=== PATIENT | male | born 1985 | race Caucasian/White ===

== ENCOUNTER 2023-05-20 17:35 | Emergency (ER) | payer MEDICAID, SELFPAY ==
--- NOTE | ~2023-05-20 | CT_ITS ---
EXAMINATION: CT ABDOMEN AND PELVIS WITHOUT CONTRAST CLINICAL INFORMATION: Flank pain. COMPARISON: None available. TECHNIQUE: Multidetector volumetric imaging was performed from the superior aspect of the liver through the pubic symphysis. Sagittal and coronal reformatted images were obtained on the technologist's workstation. This CT examination was performed using dose optimization techniques as appropriate, variously including the following: *Automated exposure control. *Adjustment of mA and/or kV according to patient size (this includes techniques or standardized protocols for targeted exams where dose is matched to indication/reason for exam; i.e. extremities or head). *Use of iterative reconstruction technique. DLP: 833 mGy-cm FINDINGS: LUNG BASES: The visualized lung bases are unremarkable. LIVER, GALLBLADDER, AND BILIARY TREE: The liver is normal in size and shape. Mild parenchymal hypoattenuation, consistent with steatosis. No focal hepatic lesion or biliary ductal dilatation is present. The gallbladder is unremarkable with no evidence of radiopaque gallstones, gallbladder wall thickening, or obvious pericholecystic inflammatory changes. PANCREAS: Unremarkable. SPLEEN: Unremarkable. ADRENAL GLANDS: Unremarkable. KIDNEYS AND URETERS: The kidneys are normal in size, shape, and attenuation. No hydronephrosis, hydroureter, or calculi seen. No perinephric stranding. BLADDER: Unremarkable. No inflammatory change or associated calcification. GASTROINTESTINAL TRACT: The small and large bowel are unremarkable. No small or large bowel obstruction. No bowel wall thickening or inflammatory change. The appendix is unremarkable. PERITONEAL CAVITY: No intra-abdominal free air or free fluid. No intra-abdominal mass or organized fluid collection/abscess formation. ABDOMINAL WALL: No significant hernia is appreciated. LYMPH NODES: No significant lymphadenopathy. VASCULAR: Unremarkable. PELVIC VISCERA: Punctate 0.1 cm calcification within the anterosuperior aspect of the prostate which likely indicates a parenchymal calcification. A proximal urethral calcification is thought less likely; however, cannot be entirely excluded in the appropriate clinical setting. Pelvic phleboliths. OSSEOUS STRUCTURES: No acute osseous abnormality. Mild degenerative disc disease and facet arthropathy at L5-S1. CT/CT abdomen pelvis wo IV con IMPRESSION: 1. No renal or ureteral stone. No hydronephrosis or hydroureter. Unremarkable urinary bladder without inflammatory change or associated calcification. 2. No bowel wall thickening or inflammatory change. No small or large bowel obstruction. Unremarkable appendix. 3. Mild hepatic steatosis. No hepatic parenchymal lesion or biliary ductal dilatation. 4. No intra-abdominal mass, lymphadenopathy, or ascites. 5. Mild degenerative disc disease and facet arthropathy at L5-S1. Fleischner guidelines were followed.
[2023-05-20 17:43] VITALS: BP 110/85; PULSE 66; RESP 18; O2SAT 100; BMI 39.3
--- NOTE | 2023-05-20 17:43 | ED.ABDPAIN ---
HPI - Abdominal Pain General Chief Complaint: Urogenital-Male Stated Complaint: abd pain, kidney stone? Time Seen by Provider: 05/20/23 17:39 Source: patient Mode of arrival: ambulatory History of Present Illness HPI narrative: 37-year-old male with remote history of kidney stone presents with onset of acute flank pain approximately 20-30 minutes ago with associated nausea, vomiting, diaphoresis and reports chills but states that they are associated with the pain. Related Data Allergies Allergy/AdvReac Type Severity Reaction Status Date / Time No Known Allergies* Allergy Uncoded 01/11/20 14:12 Review of Systems Review of Systems Pertinent positives and negatives as stated in HPI PMFSH Past Medical History Source: nursing notes reviewed Social History Social History Advance Directives: No Advance Directives Information Provided: No Physical Exam ED Vital Signs: Vital Signs - 24 hr 05/20/23 17:43 05/20/23 18:49 Temperature 97.7 F Pulse Rate 66 54 Respiratory Rate 18 18 Blood Pressure 110/85 108/56 L Pulse Oximetry 100 97 Oxygen Delivery Method Room Air Room Air BMI result Body Mass Index 39.3 VITAL SIGNS: Reviewed. GENERAL: Well developed, well nourished, in moderate-severe distress. HEAD: Normocephalic/atraumatic EYES: PERRLA, EOMI EARS: Ext canals without abnormality NOSE: Nares patent bilateral OROPHARYNX: no oral lesions noted, posterior pharynx clear NECK: Supple, no adenopathy LUNGS: Normal breath sounds. No adventitious sounds or accessory muscle use. CARDIOVASCULAR: Regular rate and rhythm without noted murmurs ABDOMEN: Soft, non-tender, non-distended with bowel sounds. MUSCULOSKELETAL: No tenderness, deformities, or effusions noted on gross inspection. EXTREMITIES: No cyanosis, clubbing or edema. SKIN: Inspection of the skin reveals no rashes NEUROLOGIC: Alert and oriented x 4. Strength and sensation to light touch were grossly intact x 4. Medical Decision Making Medical Decision Making [facility] Narrative: 37-year-old male with history and clinical presentation, DDX: renal colic, doubt appendicitis or UTI I reviewed all investigations and hematologic indices are negative for leukocytosis or left shift, there is no anemia or thrombocytopenia. Chemistry to seize do not demonstrate an THUAN or electrolyte/liver enzyme derangements. CT scan does not demonstrate any ureterolithiasis or other acute intra-abdominal pathology. Patient responded well to antiemetics/pain medication and IV fluids. My interpretation given patient's clinical presentation is that he passed a nonobstructive stone, he is currently much improved and is otherwise discharged home. Differential Diagnosis Differential Diagnoses: The differential diagnosis associated with the presentation includes Please see the discussion above Admission/Observation Consideration of admission/observation: Escalation of care including admission/observation considered Please see the discussion above Lab Data MDM Lab Attestation statement: I reviewed the patient's lab results. Please see the discussion above 05/20/23 17:51 05/20/23 17:51 Labs: Lab Results 05/20/23 Range/Units 17:51 WBC 8.5 (4.8-10.8) X10*3/uL RBC 5.09 (4.60-5.80) X10*6/uL Hgb 14.8 (14.0-18.0) g/dl Hct 44.2 (42.0-52.0) % MCV 86.8 (80.0-98.0) fL MCH 29.1 (27.0-33.0) pg MCHC 33.5 (31.0-36.0) g/dl RDW 12.6 (11.0-16.0) % Plt Count 384 (160-400) X10*3/uL MPV 9.5 (9.4-12.4) fL Immature Gran % (Auto) 0.7 H (0.0-0.4) % Neut % (Auto) 41.7 L (45-73) % Lymph % (Auto) 42.3 H (20-40) % Becker % (Auto) 9.3 (2-11) % Eos % (Auto) 5.2 H (0-4) % Baso % (Auto) 0.8 (0-2) % Lymph # (Auto) 3.6 (1.2-4.9) X10*3/uL Becker # (Auto) 0.8 (0.1-1.2) X10*3/uL Eos # (Auto) 0.4 (0.0-0.4) X10*3/uL Baso # (Auto) 0.1 (0.0-0.2) X10*3/uL Abs Immat Gran (auto) 0.06 H (0.00-0.03) X10*3/uL Absolute Neuts (auto) 3.5 (2.0-8.3) x10*3/uL Absolute Nucleated RBC 0.000 (0.0-0.012) X10*3/uL Nucleated RBC % (auto) 0.0 (0.0-0.2) /100WBC Sodium 143 (135-145) mmol/L Potassium 3.6 (3.3-5.1) mmol/L Chloride 106 (96-108) mmol/L Carbon Dioxide 28 (22-29) mmol/L Anion Gap 13 (12-20) BUN 13 (9-16) mg/dL Creatinine 1.05 (0.5-1.4) mg/dL Estim Creat Clear Calc 117.1 Estimated GFR > 60 Random Glucose 91 (60-115) mg/dL Calcium 9.6 (8.4-10.2) mg/dL Total Bilirubin 0.3 (0.0-1.0) mg/dL AST 21 (5-37) U/L ALT 20 (0-40) U/L Alkaline Phosphatase 87 (39-117) U/L Total Protein 8.1 H (6.5-8.0) g/dL Albumin 4.7 (3.5-5.0) g/dL Radiology Impression Discussion of test interpretation with radiology: I have reviewed the radiologist's reading. Radiologist Impression: Please see the discussion above External Record Review External record reviewed: Outpatient record and Prior outpatient labs Medications Administered Discontinued Medications Generic Name Dose Route Start Last Admin Trade Name Freq PRN Reason Stop Dose Admin Sodium Chloride 1,000 mls @ 999 mls/hr 05/20/23 17:45 05/20/23 19:47 Ns IV 05/20/23 18:45 Infused .Q1H1M INÉS Infusion Ketorolac Tromethamine 15 mg 05/20/23 17:43 05/20/23 17:49 Ketorolac Tromethamine 30 Mg/Ml Vial IVPUSH 05/20/23 17:44 15 mg ONCE ONE Administration Ondansetron HCl 4 mg 05/20/23 17:43 05/20/23 17:49 Ondansetron Hcl 4 Mg/2 Ml Vial IVPUSH 05/20/23 17:44 4 mg ONCE ONE Administration Critical Care Time Critical Care Time Critical Care Time: Yes Total Critical Care Time: 30 Attestation: I personally attest to this time spent taking care of the patient. Discharge Plan Discharge Clinical Impression: Renal colic Patient Disposition: Home, Self-Care Instructions: Renal Colic (ED) Additional Instructions: 1. You likely pass the stone, increase the amount of water intake and try to limit the amount of carbonated and caffeinated beverages. Return to the ER for any worsening symptoms.
[2023-05-20] MEDS: 0.9 % Sodium Chloride 1,000 ML 999 ML IV (17:48)
[2023-05-20] MEDS: ondansetron HCL 4 MG/2 ML VIAL IVPUSH (17:49)
[2023-05-20] MEDS: Ketorolac Tromethamine 30 MG/ML VIAL 15 MG IVPUSH (17:49)
[2023-05-20 17:54] LABS: MANUAL DIFF FLAG NO
--- NOTE | 2023-05-20 17:54 | PC.NURSE ---
patient presenting fro [facility] started to have right sided flank pain, patient vomiting and diaphoretic. patient had iv line started, iv running with 1000ml NS patient medicated per MAR
[2023-05-20 18:10] LABS: Alanine Aminotransferase 20 U/L (0-40); Albumin Level 4.7 g/dL (3.5-5.0); Alkaline Phosphatase 87 U/L (39-117); Anion Gap 13 (12-20); Aspartate Amino Transferase 21 U/L (5-37); Bilirubin Total 0.3 mg/dL (0.0-1.0); Blood Urea Nitrogen 13 mg/dL (9-16); Calcium 9.6 mg/dL (8.4-10.2); Carbon Dioxide 28 mmol/L (22-29); Chloride 106 mmol/L (96-108); Creatinine Clr Calc Pharmacy 117.1; Estimated Glomerular Filt Rate > 60; Glucose Random 91 mg/dL (60-115); Potassium 3.6 mmol/L (3.3-5.1); Sodium 143 mmol/L (135-145); Total Protein 8.1 g/dL (6.5-8.0)
[2023-05-20 18:18] LABS: Basophils Absolute Auto 0.1 X10*3/uL (0.0-0.2); Basophils Percent Auto 0.8 % (0-2); Eosinophils Absolute Auto 0.4 X10*3/uL (0.0-0.4); Eosinophils Percent Auto 5.2 % (0-4); Hematocrit 44.2 % (42.0-52.0); Hemoglobin 14.8 g/dl (14.0-18.0); Imm Gran Abs Auto 0.06 X10*3/uL (0.00-0.03); Imm Gran Pct Auto 0.7 % (0.0-0.4); Lymphocytes Absolute Auto 3.6 X10*3/uL (1.2-4.9); Lymphocytes Percent Auto 42.3 % (20-40); Mean Corpuscular HGB Conc 33.5 g/dl (31.0-36.0); Mean Corpuscular Hemoglobin 29.1 pg (27.0-33.0); Mean Corpuscular Volume 86.8 fL (80.0-98.0); Mean Platelet Volume 9.5 fL (9.4-12.4); Monocytes Absolute Auto 0.8 X10*3/uL (0.1-1.2); Monocytes Percent Auto 9.3 % (2-11); Neutrophils Absolute Auto 3.5 x10*3/uL (2.0-8.3); Neutrophils Percent Auto 41.7 % (45-73); Platelet Count 384 X10*3/uL (160-400); Red Blood Count 5.09 X10*6/uL (4.60-5.80); Red Cell Distribution Width 12.6 % (11.0-16.0); White Blood Count 8.5 X10*3/uL (4.8-10.8)
[2023-05-20 18:49] VITALS: BP 108/56; PULSE 54; RESP 18; TEMP 36.5; O2SAT 97
[2023-05-20 21:10] VITALS: BP 119/59; PULSE 60; RESP 18; TEMP 36.8; O2SAT 96
== END 2023-05-20 21:15 | disposition home or self-care (01) ==
PROVIDERS: Emergency Provider Student in an Organized Health Care Education/Training Program
DX: N23 Unspecified renal colic (principal); Z87.442 Personal history of urinary calculi
CPT/HCPCS: 36415; 74176; 80053; 85025; 96361; 96374; 96375; 99284; J1885; J2405

== ENCOUNTER 2023-11-23 22:29 | Inpatient (IN) | payer MEDICAID, SELFPAY ==
--- NOTE | 2023-11-23 | ECG_ITS ---
Test Reason : CHEST PAIN Blood Pressure : / mmHG Vent. Rate : 068 BPM Atrial Rate : 068 BPM P-R Int : 172 ms QRS Dur : 086 ms QT Int : 376 ms P-R-T Axes : 010 041 067 degrees QTc Int : 399 ms Normal sinus rhythm Cannot rule out Anterior infarct , age undetermined Abnormal ECG No previous ECGs available Referred By: Generic ED Physician Electronically Signed By:LINCOLN GIANG MD
--- NOTE | ~2023-11-23 | XR_ITS ---
EXAMINATION: XR CHEST CLINICAL INFORMATION: Chest pain. COMPARISON: None available. TECHNIQUE: Frontal view of the chest was obtained. FINDINGS: No significant abnormality is noted involving the heart, lungs, mediastinum, bony thorax or soft tissues. XR/XR chest 1V IMPRESSION: Unremarkable examination.
[2023-11-23 22:37] VITALS: BP 142/77; PULSE 64; RESP 17; TEMP 36.6; O2SAT 97; BMI 36.3
[2023-11-23 22:55] LABS: MANUAL DIFF FLAG NO
[2023-11-23 22:56] LABS: Basophils Percent Auto 0.3 % (0-2); Eosinophils Absolute Auto 0.1 X10*3/uL (0.0-0.4); Eosinophils Percent Auto 0.5 % (0-4); Hemoglobin 14.5 g/dl (14.0-18.0); Imm Gran Abs Auto 0.05 X10*3/uL (0.00-0.03); Imm Gran Pct Auto 0.4 % (0.0-0.4); Lymphocytes Absolute Auto 1.2 X10*3/uL (1.2-4.9); Lymphocytes Percent Auto 9.7 % (20-40); Mean Corpuscular HGB Conc 34.5 g/dl (31.0-36.0); Mean Corpuscular Hemoglobin 29.7 pg (27.0-33.0); Mean Corpuscular Volume 86.1 fL (80.0-98.0); Mean Platelet Volume 9.3 fL (9.4-12.4); Monocytes Absolute Auto 0.6 X10*3/uL (0.1-1.2); Monocytes Percent Auto 4.4 % (2-11); Neutrophils Absolute Auto 10.7 x10*3/uL (2.0-8.3); Neutrophils Percent Auto 84.7 % (45-73); Platelet Count 373 X10*3/uL (160-400); Red Blood Count 4.88 X10*6/uL (4.60-5.80); Red Cell Distribution Width 12.5 % (11.0-16.0); White Blood Count 12.6 X10*3/uL (4.8-10.8)
[2023-11-23 23:08] LABS: Alanine Aminotransferase 19 U/L (0-40); Albumin Level 4.7 g/dL (3.5-5.0); Alkaline Phosphatase 80 U/L (39-117); Anion Gap 15 (12-20); Aspartate Amino Transferase 23 U/L (5-37); Bilirubin Total 0.3 mg/dL (0.0-1.0); Blood Urea Nitrogen 14 mg/dL (9-16); Calcium 9.7 mg/dL (8.4-10.2); Carbon Dioxide 28 mmol/L (22-29); Chloride 103 mmol/L (96-108); Creatinine Clr Calc Pharmacy 83.5; Estimated Glomerular Filt Rate 57; Glucose Random 122 mg/dL (60-115); Potassium 4.3 mmol/L (3.3-5.1); Sodium 142 mmol/L (135-145); Total Protein 7.7 g/dL (6.5-8.0)
[2023-11-23 23:15] LABS: Troponin-I High Sensitivity 43.5 ng/L (<3.5-35.0)
--- NOTE | 2023-11-23 23:28 | ED.CHESTPAIN ---
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 practice which did earlier today came home at 2000 after taking shower at 21:00 patient noticed bilateral arm pain and mid chest burning sensation, no jaw pain no nausea no vomiting no shortness a breath patient never had similar pain in the past no cardiac history in family patient does nonsmoker no substance abuse except cannabis patient is unable to describe whether pain was increasing on deep inspiration but did feel change in character of the pain with movement Related Data Allergies Allergy/AdvReac Type Severity Reaction Status Date / Time No Known Allergies* Allergy Unknown Uncoded 11/23/23 22:39 Review of Systems Review of Systems: Yes all other systems are reviewed and are negative [facility] Social History Social History Alcohol intake: current Alcohol intake frequency: holidays/special occasions only Smoked in Last 30 Days: No Use of substances other than those prescribed or required for medical reasons: Yes Substance Use Type: Marijuana Substance Use Frequency: Chronic Longstanding Advance Directives: No Advance Directives Information Provided: Yes Do you have a plan to hurt others: No Plan Physical Exam Vital Signs: Vital Signs: Last Vital Signs Temp 97.9 F 11/24/23 01:13 Pulse 62 11/24/23 01:13 Resp 15 11/24/23 01:13 BP 117/54 L 11/24/23 01:13 Pulse Ox 95 11/24/23 01:13 O2 Del Method Room Air 11/24/23 01:13 BMI result Body Mass Index 36.3 Appearance: Alert. Oriented X3. No acute distress. Eyes: PERRLA, No Nystagmus ENT: Pharynx normal. Oral Mucosa moist Neck: Normal inspection. Neck supple. CVS: Normal heart rate and rhythm. Pulses normal. No murmur/rub or gallop Respiratory: No respiratory distress. Equal air entry bilateral, no wheezing/rales/rhonchi Abdomen: Soft and nontender. Bowel sounds are present, no mass palpable, no CVA tenderness Skin: Skin warm and dry. Normal skin color. Normal skin turgor. Extremities: No lower extremity edema. No calf tenderness Neuro: Oriented X 3. No motor deficit. No sensory deficit.No cerebellar signs , cranial nerves II-XII intact Medications Administered Discontinued Medications Generic Name Dose Route Start Last Admin Trade Name Nichole PRN Reason Stop Dose Admin Aspirin 162 mg 11/23/23 23:37 11/23/23 23:49 Aspirin 81 Mg Tab.Chew PO 11/23/23 23:38 162 mg ONCE ONE Administration Atorvastatin Calcium 80 mg 11/24/23 01:22 11/24/23 01:40 Atorvastatin Calcium 80 Mg Tablet PO 11/24/23 01:23 80 mg ONCE ONE Administration Heparin Sodium (Porcine) 5,000 unit 11/24/23 01:15 11/24/23 01:39 Heparin Sodium,Porcine 5,000 Unit/Ml Vial IVPUSH 11/24/23 01:16 5,000 unit ONCE ONE Administration Nitroglycerin 1 inch 11/23/23 23:37 11/23/23 23:49 Nitroglycerin 2 % Oint 1 Gm Packet TRANSDERMA 11/23/23 23:38 1 inch ONCE ONE Administration Medical Decision Making Medical Decision Making [facility] Narrative: Patient with chest pain with bilateral arm pain with no prior history of coronary artery disease initial troponin I was 43.5 repeat in 2 hours was 68.5 patient not on any high protein diet or creatinine chest pain and arm pain felt better after nitro paste ointment will admit patient for further cardiac evaluation started on heparin drip repeat EKG done which showed slightly more prominent ST elevation possible in V5 V6 although has diffuse ST elevation inferior leads also case discussed Dr. Moreno advised to call [facility] cardiac catheterization for possible STEMI ??? Pericarditis at this time patient does not have any chest pain after nitro paste already on heparin Case discussed with Dr. Calle [facility] cardiac catheterization reviewed the EKGs suspecting possible pericarditis although patient's pain is not very typical patient unable to explain whether pain increases on inspiration or not suggested to give high dose of aspirin 650 mg 3 times a day along with colchicine 0.6 two times a day at this time patient does not have any chest pain will admit patient to medical service Differential Diagnosis Differential Diagnoses: The differential diagnosis associated with the presentation includes ACS/STEMI/non-STEMI/pericarditis Admission/Observation Consideration of admission/observation: Escalation of care including admission/observation considered Consult Healthcare Provider Management of the patient was discussed with: Hospitalist Lab Data [facility] Lab Attestation statement: I reviewed the patient's lab results. 11/23/23 22:49 11/23/23 22:49 Labs: Lab Results 11/23/23 11/23/23 11/24/23 Range/Units 22:49 23:58 00:43 WBC 12.6 H (4.8-10.8) X10*3/uL RBC 4.88 (4.60-5.80) X10*6/uL Hgb 14.5 (14.0-18.0) g/dl Hct 42.0 (42.0-52.0) % MCV 86.1 (80.0-98.0) fL MCH 29.7 (27.0-33.0) pg MCHC 34.5 (31.0-36.0) g/dl RDW 12.5 (11.0-16.0) % Plt Count 373 (160-400) X10*3/uL MPV 9.3 L (9.4-12.4) fL Immature Gran % (Auto) 0.4 (0.0-0.4) % Neut % (Auto) 84.7 H (45-73) % Lymph % (Auto) 9.7 L (20-40) % Hodgeman % (Auto) 4.4 (2-11) % Eos % (Auto) 0.5 (0-4) % Baso % (Auto) 0.3 (0-2) % Lymph # (Auto) 1.2 (1.2-4.9) X10*3/uL Hodgeman # (Auto) 0.6 (0.1-1.2) X10*3/uL Eos # (Auto) 0.1 (0.0-0.4) X10*3/uL Baso # (Auto) 0.0 (0.0-0.2) X10*3/uL Abs Immat Gran (auto) 0.05 H (0.00-0.03) X10*3/uL Absolute Neuts (auto) 10.7 H (2.0-8.3) x10*3/uL Absolute Nucleated RBC 0.000 (0.0-0.012) X10*3/uL Nucleated RBC % (auto) 0.0 (0.0-0.2) /100WBC PT 11.7 (11.1-13.3) SEC INR 1.0 (0.9-1.1) APTT 26.8 (26.0-36.8) SEC D-Dimer High Sensitivty 166 NG/ML Sodium 142 (135-145) mmol/L Potassium 4.3 (3.3-5.1) mmol/L Chloride 103 (96-108) mmol/L Carbon Dioxide 28 (22-29) mmol/L Anion Gap 15 (12-20) BUN 14 (9-16) mg/dL Creatinine 1.40 (0.5-1.4) mg/dL Estim Creat Clear Calc 83.5 Estimated GFR 57 Random Glucose 122 H (60-115) mg/dL Calcium 9.7 (8.4-10.2) mg/dL Magnesium 2.0 (1.6-2.6) mg/dL Total Bilirubin 0.3 (0.0-1.0) mg/dL AST 23 (5-37) U/L ALT 19 (0-40) U/L Alkaline Phosphatase 80 (39-117) U/L Troponin I High Sens 43.5 H 68.5 H D (<3.5-35.0) ng/L Total Protein 7.7 (6.5-8.0) g/dL Albumin 4.7 (3.5-5.0) g/dL Independent Interpretation I performed an independent interpretation of an: EKG and Plain X-Ray Interpretation: Normal sinus rhythm heart rate 68 beats per minute poor progression of R-wave in anterior leads slight J-point elevation diffusely in inferior and lateral leads Repeat EKG at 04/19 09:00 showed normal sinus rhythm with heart rate 65 beats per minute poor progression of R-wave slight ST elevation in V5 V6 which has changed from previous EKG also diffuse ST elevation inferior leads 2 3 AVF Radiology Impression Discussion of test interpretation with radiology: I have reviewed the radiologist's reading. Critical Care Time Critical Care Time Critical Care Time: Yes Total Critical Care Time: 60 Attestation: The patient was critically ill with a high probability of imminent or life threatening deterioration. I spent greater than 65 ???minutes of discontinuous time evaluating the patient,delivering critical care at the bedside, discussing and evaluating pertinent data with consultants. Critical care time does not include time spent performing separately billable procedures or teaching. Total time spent performing critical care was60 ???minutes. Discharge Plan Discharge Clinical Impression: Chest pain, Acute pericarditis Patient Disposition: Admitted As Inpatient Print Language: Khmer
--- NOTE | 2023-11-23 23:37 | MHC.EDTECH ---
Patient placed on monitor and patient vitals done
[2023-11-23 23:38] VITALS: BP 137/68; PULSE 67; RESP 19; TEMP 37.3; O2SAT 96
[2023-11-23] MEDS: Nitroglycerin 2 % Oint 1 GM Packet 1 INCH TRANSDERMA (23:49)
[2023-11-23] MEDS: Aspirin 81 MG TAB.CHEW 162 MG PO (23:49)
[2023-11-23 23:51] VITALS: PULSE 69
[2023-11-24] VITALS (7 sets, daily range): BP systolic 108–129; BP diastolic 54–77; PULSE 48–62; RESP 14–20; TEMP 36.4–36.6; O2SAT 95–99; BMI 37.0; BMI 37.4
--- NOTE | 2023-11-24 | ECG_ITS ---
Test Reason : REPEAT Blood Pressure : / mmHG Vent. Rate : 058 BPM Atrial Rate : 058 BPM P-R Int : 180 ms QRS Dur : 100 ms QT Int : 414 ms P-R-T Axes : 014 055 086 degrees QTc Int : 406 ms Sinus bradycardia Nonspecific ST and T wave abnormality Abnormal ECG When compared with ECG of 24-NOV-2023 01:19, No significant change was found Referred By: Jessy Lazo Electronically Signed By:LINCOLN GIANG MD
[2023-11-24 00:19] LABS: Prothrombin Time 11.7 SEC (11.1-13.3)
[2023-11-24 00:21] LABS: D Dimer High Sensitivity 166 NG/ML; Partial Thromboplastin Time 26.8 SEC (26.0-36.8)
[2023-11-24 01:12] LABS: Troponin-I High Sensitivity 68.5 ng/L (<3.5-35.0)
--- NOTE | 2023-11-24 01:19 | ECG_ITS ---
Test Reason : REPEAT EKG Blood Pressure : / mmHG Vent. Rate : 065 BPM Atrial Rate : 065 BPM P-R Int : 190 ms QRS Dur : 096 ms QT Int : 394 ms P-R-T Axes : 018 054 088 degrees QTc Int : 409 ms Normal sinus rhythm Cannot rule out Anterior infarct (cited on or before 23-NOV-2023) Nonspecific ST elevation Abnormal ECG When compared with ECG of 23-NOV-2023 22:33, No significant change was found Referred By: Jacob Shah Electronically Signed By:LINCOLN GIANG MD
[2023-11-24] MEDS: Heparin Sodium,Porcine 5,000 UNIT/ML VIAL 5000 UNIT IVPUSH (01:39)
[2023-11-24] MEDS: Atorvastatin Calcium 80 MG TABLET PO (01:40)
[2023-11-24] MEDS: Colchicine 0.6 MG TABLET PO ×2 (03:28→10:15)
[2023-11-24] MEDS: Aspirin Enteric Coated 325 MG TABLET.DR PO (03:28)
[2023-11-24 03:52] LABS: Troponin-I High Sensitivity 115.7 ng/L (<3.5-35.0)
--- NOTE | 2023-11-24 04:32 | PM.IMHP ---
History of Present Illness Date of Service: 11/24/23 Attending physician on admission: Jessy Lazo Chief Complaint: Chest pain Dustin Abraham is a very pleasant 38 years old man with no significant past medical history presents to the emergency department complaining of mid chest pain that started last night around 9 PM while he was relaxing at home. He said that the pain does not radiate however, he feels some pain traveling down the anterior aspect of both arms. He described the pain as a burning sensation. No relieving or exacerbating factors reported such as change in position. Associated symptoms he reported some shortness of breath. Denied diaphoresis, nausea, vomiting, dizziness or palpitations. He also denied fever, chills or cough. He did reported headache that he attributes to nitroglycerin ointment. He decided to take a shower to see if his symptoms improve. There is no recent history of flu-like symptoms or rashes. Denied any acute gastrointestinal or genitourinary symptoms. He does exercise regularly and yesterday he was boxing and feels that he was exerting himself more than usual. His dad from alcoholic liver cirrhosis and his mother of breast cancer. As far as he knows there is no history of sudden , coronary artery disease or heart problems in his family. He does not take medications daily. Denies alcohol abuse. He does smoke marijuana and denied use of illegal drugs such as cocaine. In the ED, he was found to have normal vital signs. Blood workup showed leukocytosis of 12.6. Neutrophils are elevated at lymphocytes are low. Hemoglobin and platelets are normal. There are no electrolyte imbalances. Creatinine is 1.40. LFTs are normal. INR is normal. D-dimer is 166. Troponin is increasing (4305-->68.5-->115.7). CXR is negative. Serial ECGs showed ST elevation in the anterior and inferior leads without reciprocal changes. It also showed received [place] elevation and ST depression in AVR + irregular J-point in lead V4. ED tx: Heparin via infusion + bolus (dced later), aspirin 487 mg p.o., atorvastatin 80 mg p.o., nitro 1 in ointment (dced later), colchicine 0.6 mg PO Review of Systems Review of Systems: All 12 systems were reviewed and normal except as noted in HPI. [facility] Social History Alcohol intake: current Alcohol intake frequency: holidays/special occasions only Smoked in Last 30 Days: No Use of substances other than those prescribed or required for medical reasons: Yes Substance Use Type: Marijuana Substance Use Frequency: Chronic Longstanding Advance Directives: No Advance Directives Information Provided: Yes Do you have a plan to hurt others: No Plan Meds Allergies Allergy/AdvReac Type Severity Reaction Status Date / Time No Known Allergies* Allergy Unknown Uncoded 11/23/23 22:39 Active Medications: Current Medications Acetaminophen (Acetaminophen 325 Mg Tablet) 975 mg PO Q6H PRN PRN Reason: Pain, Mild (Pain Scale 1-3), fever or headache Calcium Carbonate (Calcium Carbonate 750 Mg Tab.Chew) 750 mg PO Q4H PRN PRN Reason: Heartburn Melatonin (Melatonin 3 Mg Tablet) 6 mg PO BEDTIME PRN PRN Reason: Insomnia Omeprazole (Omeprazole 40 Mg Capsule.Dr) 40 mg PO DAILY@0630 [facility] Sodium Chloride (0.9 % Sodium Chloride Flush 3 Ml Syringe) 3 ml IVFLUSH QSHIFT [facility] Physical Exam Vital Signs and Narrative: Vital Signs: Last Vital Signs Temp 97.9 F 11/24/23 01:13 Pulse 48 L 11/24/23 03:59 Resp 18 11/24/23 03:59 BP 129/77 11/24/23 03:59 Pulse Ox 96 11/24/23 03:59 O2 Del Method Room Air 11/24/23 03:59 BMI result Body Mass Index 37.0 Constitutional - Awake and Alert, No apparent distress. Pleasant. Cooperative. HEENT - PERRL, EOMI. Normal sclerae. Heart - S1S2, RRR, No murmur. Lungs - Normal lung expansion, Normal respiratory effort, No respiratory distress, CTA bilaterally Abdomen - NT / ND; +BS; No rebound or guarding Extremities - no calf tenderness bilaterally, no swelling Musculoskeletal - Normal inspection, normal ROM Skin - Warm/Dry Neurological - Alert & oriented x3. No focal weakness weakness grossly noted. Normal speech. Psychological - Appropriate affect Results Labs 11/24/23 04:51 11/24/23 04:51 Labs: Laboratory Results - last 24 hr 11/23/23 11/23/23 11/24/23 22:49 23:58 00:43 MCV 86.1 MCH 29.7 MCHC 34.5 RDW 12.5 Plt Count 373 MPV 9.3 L Immature Gran % (Auto) 0.4 Neut % (Auto) 84.7 H Lymph % (Auto) 9.7 L [place] % (Auto) 4.4 Eos % (Auto) 0.5 Baso % (Auto) 0.3 Lymph # (Auto) 1.2 [place] # (Auto) 0.6 Eos # (Auto) 0.1 Baso # (Auto) 0.0 Abs Immat Gran (auto) 0.05 H Absolute Neuts (auto) 10.7 H Absolute Nucleated RBC 0.000 Nucleated RBC % (auto) 0.0 PT 11.7 INR 1.0 APTT 26.8 D-Dimer High Sensitivty 166 Anion Gap 15 Estim Creat Clear Calc 83.5 Estimated GFR 57 Random Glucose 122 H Calcium 9.7 Magnesium 2.0 Total Bilirubin 0.3 AST 23 ALT 19 Alkaline Phosphatase 80 Troponin I High Sens 43.5 H 68.5 H D C-Reactive Protein 0.50 Total Protein 7.7 Albumin 4.7 11/24/23 03:22 MCV MCH MCHC RDW Plt Count MPV Immature Gran % (Auto) Neut % (Auto) Lymph % (Auto) [place] % (Auto) Eos % (Auto) Baso % (Auto) Lymph # (Auto) [place] # (Auto) Eos # (Auto) Baso # (Auto) Abs Immat Gran (auto) Absolute Neuts (auto) Absolute Nucleated RBC Nucleated RBC % (auto) PT INR APTT D-Dimer High Sensitivty Anion Gap Estim Creat Clear Calc Estimated GFR Random Glucose Calcium Magnesium Total Bilirubin AST ALT Alkaline Phosphatase Troponin I High Sens 115.7 H* D C-Reactive Protein Total Protein Albumin Imaging Radiologist's Impressions: Impressions Chest X-Ray 11/23/23 23:43 IMPRESSION: Unremarkable examination. Assessment and Plan (1) Acute pericarditis: Qualifiers: Pericarditis type: unspecified type Qualified Code(s): I30.9 - Acute pericarditis, unspecified Status: Acute (2) Chest pain: Qualifiers: Chest pain type: unspecified Qualified Code(s): R07.9 - Chest pain, unspecified Status: Acute (3) Heartburn: Status: Acute Plan Dustin Abraham is a 38 y/o man admitted with: Acute pericarditis, pain is currently free of chest pain (even after nitro ointment was removed). ECGs showing ST elevation V1-V5, II, III, aVF, no reciprocal changes. Case d/w cardiology [facility] - recommending aspirin 650 mg PO TID and colchicine 0.6 mg PO bid. Admit to telemetry. Obtain TTE. Serial troponin. Cardiology consult. Heartburn. Maalox as needed. Omeprazole 40 mg p.o. daily. Obesity, class II. BMI 37.0 kg/m2. Encourage weight loss and lifestyle changes. Code status: Full DVT prophylaxis: Ambulation. Patient will need hospitalization for at least 2 midnights for acute pericarditis treatment with aspirin and colchicine, continuous cardiac monitoring, vital signs monitoring and evaluation by subspecialty. Quality Stroke Does the patient have a stroke diagnosis?: No VTE Prior VTE?: No VTE Risk Level:: Medical - moderate - high VTE Device Contraindication: Treatment Not Indicated VTE Drug Contraindication: Treatment Not Indicated
[2023-11-24 05:06] LABS: MANUAL DIFF FLAG NO
[2023-11-24 05:07] LABS: Basophils Absolute Auto 0.1 X10*3/uL (0.0-0.2); Basophils Percent Auto 0.8 % (0-2); Eosinophils Absolute Auto 0.3 X10*3/uL (0.0-0.4); Eosinophils Percent Auto 3.1 % (0-4); Hematocrit 39.5 % (42.0-52.0); Hemoglobin 13.2 g/dl (14.0-18.0); Imm Gran Abs Auto 0.03 X10*3/uL (0.00-0.03); Imm Gran Pct Auto 0.3 % (0.0-0.4); Lymphocytes Absolute Auto 2.9 X10*3/uL (1.2-4.9); Lymphocytes Percent Auto 33.3 % (20-40); Mean Corpuscular HGB Conc 33.4 g/dl (31.0-36.0); Mean Corpuscular Hemoglobin 29.2 pg (27.0-33.0); Mean Corpuscular Volume 87.4 fL (80.0-98.0); Mean Platelet Volume 9.7 fL (9.4-12.4); Monocytes Absolute Auto 0.7 X10*3/uL (0.1-1.2); Monocytes Percent Auto 7.7 % (2-11); Neutrophils Absolute Auto 4.8 x10*3/uL (2.0-8.3); Neutrophils Percent Auto 54.8 % (45-73); Platelet Count 322 X10*3/uL (160-400); Red Blood Count 4.52 X10*6/uL (4.60-5.80); Red Cell Distribution Width 12.7 % (11.0-16.0); White Blood Count 8.8 X10*3/uL (4.8-10.8)
[2023-11-24 05:24] LABS: Anion Gap 12 (12-20); Blood Urea Nitrogen 14 mg/dL (9-16); Calcium 9.1 mg/dL (8.4-10.2); Carbon Dioxide 26 mmol/L (22-29); Chloride 107 mmol/L (96-108); Creatinine Clr Calc Pharmacy 110.3; Estimated Glomerular Filt Rate > 60; Glucose Random 109 mg/dL (60-115); Magnesium 2.1 mg/dL (1.6-2.6); Potassium 3.9 mmol/L (3.3-5.1); Sodium 141 mmol/L (135-145)
--- NOTE | 2023-11-24 07:00 | CA_ITS ---
Transthoracic Echocardiogram Patient (Last, First, Middle): Dustin Abraham, Gender: Male Date of : 1985 Age: 38 Procedure Date: 11/24/2023 Procedure Type: Transthoracic Echocardiogram Location: ER Height: 170.18 cm Weight: 107.05 kg BSA: 2.17 m2 Heart Rate: 51 bpm BP: 115 / 59 mmHg Assistant Casino Shift Manager: ABRAM Referring MD: Jessy Lazo MD Clinical Document Improvement Educator: Rick Moreno MD Symptoms: Chest pain Study Quality: Adequate w contrast ECG Rhythm: Bradycardia Conclusions: - Essentially normal study Findings Procedure Information Contrast agent, definity, is being given per protocol without apparent complications. Left Ventricle Normal left ventricular size, thickness, and systolic function. The visually estimated ejection fraction is between 65-70%. There is no evidence of regional wall motion abnormalities. Spectral Doppler is indicative of a normal filling pattern. Right Ventricle Normal right ventricular cavity size and systolic function. Atria Both atria are normal in size. Interatrial shunt cannot be excluded. Aortic Valve Normal aortic valve structure and function. There is no aortic valve stenosis. There is no aortic valve regurgitation. Mitral Valve Normal mitral valve structure and function. There is no mitral valve regurgitation. There is no mitral valve stenosis. Pulmonic Valve The pulmonic valve is likely normal. Tricuspid Valve Likely normal tricuspid valve structure and function. Tricuspid regurgitation envelope is inadequate for calculation of right ventricular systolic pressure. Normal right atrial pressure. Great Vessels All visible segments of the aorta are normal in size. Venous The inferior vena cava was not well visualized. Pericardium/Pleural There is no evidence of pericardial effusion. Prior Study Comparison No prior study available for comparison. Measurements 2D Linear Measurements IVSd: 1.00 0.6-0.9/0.6-1.0 cm LVIDd: 4.79 3.9-5.3/4.2-5.9 cm LVIDd Index: 2.21 2.4-3.2/2.2-3.1 cm/m2 LVIDs: 2.70 2.0-3.6 cm LVPWd: 1.20 0.7-1.1 cm LA Diam: 3.80 2.7-3.8/3.0-4.0 cm LAIDs Index: 1.75 1.5-2.3 cm/m2 LV Mass: 240.90 67-162/88-224 g LV Mass Index: 111.01 43-95/49-115 g/m2 LVOT Diam: 2.10 3.0+(-)1.3 cm 2D Systolic Function EF 4C: 72.50 >55% EF 2C: 64.40 >55% EF BiP: 68.80 >55% Mitral Valve MV Pk E: 0.89 MV PK A: 0.44 MV Decel Time: 269.00 E/A: 2.00 E'Lateral: 11.30 E'Medial: 8.27 E/E' Med: 10.80 E/E' Lat: 7.90 PHT: 79.00 MVA PHT: 2.78 Decel Henry: 3.31 Aortic Valve AoV Pk Adalberto: 1.47 AoV Pk Grad: 9.00 YUKI: 3.62 LVOT LVOT Pk Adalberto: 1.58 LVOT Mn Adalberto: 0.93 LVOT VTI: 0.30 LVOT Pk Grad: 10.00 LVOT Mn Grad: 4.00 LVOT Diam: 2.10 LVOT Area: 3.46 Diastolic Function MV Pk E: 0.89 MV Pk A: 0.44 E/A: 2.00 E'Medial: 8.27 E/E' Med: 10.80 E' Laterial: 11.30 E/E' Lat: 7.90 Right Ventricle TAPSE (mm): 20.30 TVS' Adalberto: 11.30 Great Vessels Aorta Sinus of Valsalva: 2.80 2.0-3.5 cm Ao Asc: 2.70 2.1-3.4 cm Ao Arch: 2.70 Ao Desc: 1.60 Pulmonary Valve PV Pk Adalberto: 1.12 Peak PV Grad: 5.00 Updated in Other Vendor System with Status of Final Rick Moreno MD electronically signed on 11/24/2023 12:20:08 PM with status of Final
--- NOTE | 2023-11-24 07:30 | PC.NURSE ---
this RN resumed care of pt at 0645. a&ox4. vss and up to date. 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 pt presents to the ED w/ sudden onset epigastric/sternal chest pain x 9pm radiating to arms bilaterally last night while relaxing at home. pt describes pain as constant/burning sensation. pt verbalizes just coming home from the gym. attempted to take a warm shower to relieve sx but did not help so came into the ED. pt currently denies pain/has no complaints. denies sob/palpitations/HERNANDEZ/dizziness/lightheadedness/change in vision. pt currently resting comfortably w/ the lights dimmed in no apparent distress. no sob/wob noted. respirations even/unlabored. pt pending echo to be completed at this time. cardiology consult placed as well. plan of care ongoing. call bui placed within reach.
--- NOTE | 2023-11-24 08:39 | PHA.MEDREC ---
Addendum entered by Enrique Riddle [facility] 11/24/23 08:44: MED REC DOUBLE CHECKED BY [facility] Original Note: Pharmacy Consult ? Medication Reconciliation Pharmacy has completed the medication reconciliation. Spoke to patient and he confirmed he is not currently taking any medicaiton.
--- NOTE | 2023-11-24 08:50 | PC.NURSE ---
ultrasound being completed at this time.
[2023-11-24] MEDS: Omeprazole 40 MG CAPSULE.DR PO (09:30)
[2023-11-24] MEDS: Aspirin 325 MG TABLET 650 MG PO ×2 (09:30→15:53)
--- NOTE | 2023-11-24 09:30 | PM.DS ---
DS: Providers Provider Date of Service: 11/24/23 Date of admission: 11/24/23 03:47 Date of discharge: 11/24/23 Primary care physician: Unknown Physician Consults: 11/24/23 03:49 Consult to Cardiology Routine Consulting Provider: [facility] Reason for consultation: Chest pain, elevated trop Has provider been notified: Yes DS: Diagnosis Discharge Diagnosis (1) Acute pericarditis: Status: Acute (2) Chest pain: Status: Acute (3) Heartburn: Status: Acute DS: Summary Hospital Course Hospital Course: admission hpi Chief Complaint: Chest pain Dustin Abraham is a very pleasant 38 years old man with no significant past medical history presents to the emergency department complaining of mid chest pain that started last night around 9 PM while he was relaxing at home. He said that the pain does not radiate however, he feels some pain traveling down the anterior aspect of both arms. He described the pain as a burning sensation. No relieving or exacerbating factors reported such as change in position. Associated symptoms he reported some shortness of breath. Denied diaphoresis, nausea, vomiting, dizziness or palpitations. He also denied fever, chills or cough. He did reported headache that he attributes to nitroglycerin ointment. He decided to take a shower to see if his symptoms improve. There is no recent history of flu-like symptoms or rashes. Denied any acute gastrointestinal or genitourinary symptoms. He does exercise regularly and yesterday he was boxing and feels that he was exerting himself more than usual. His dad from alcoholic liver cirrhosis and his mother of breast cancer. As far as he knows there is no history of sudden , coronary artery disease or heart problems in his family. He does not take medications daily. Denies alcohol abuse. He does smoke marijuana and denied use of illegal drugs such as cocaine. In the ED, he was found to have normal vital signs. Blood workup showed leukocytosis of 12.6. Neutrophils are elevated at lymphocytes are low. Hemoglobin and platelets are normal. There are no electrolyte imbalances. Creatinine is 1.40. LFTs are normal. INR is normal. D-dimer is 166. Troponin is increasing (4305-->68.5-->115.7). CXR is negative. Serial ECGs showed ST elevation in the anterior and inferior leads without reciprocal changes. It also showed received [place] elevation and ST depression in AVR + irregular J-point in lead V4. ED tx: Heparin via infusion + bolus (dced later), aspirin 487 mg p.o., atorvastatin 80 mg p.o., nitro 1 in ointment (dced later), colchicine 0.6 mg PO Hospital course: He presented with chest pain as described. The ECG shows no definite ischemic changes, but possible pericarditis. Initial troponin was 43, which increased to 115 and then zohreh to 1792. He was given Colchicine for possible pericarditis, along with ASA and a statin, and started on IV heparin. No beta-blockers were administered due to baseline bradycardia. Cardiology is advising further testing with cardiac catheterization at [facility]. He is currently chest pain-free and hemodynamically stable. Time Attestation Discharge Coordination Time (in mins): 35 Quality: Safe Use of Opioids Does Pt have an Active Cancer Diagnosis on the Problem List?: No Quality: Stroke Does the patient have a stroke diagnosis?: No Physical Exam Vital Signs: Vital Signs: Last Vital Signs Temp 97.7 F 11/24/23 06:30 Pulse 57 11/24/23 06:30 Resp 14 11/24/23 06:30 BP 129/70 11/24/23 06:30 Pulse Ox 97 11/24/23 06:30 O2 Del Method Room Air 11/24/23 06:30 BMI result Body Mass Index 37.0 DS: Data Data Completed and Pending Labs on day of discharge: Laboratory Results - last 24 hr 11/23/23 11/23/23 11/24/23 22:49 23:58 00:43 WBC 12.6 H RBC 4.88 Hgb 14.5 Hct 42.0 MCV 86.1 MCH 29.7 MCHC 34.5 RDW 12.5 Plt Count 373 MPV 9.3 L Immature Gran % (Auto) 0.4 Neut % (Auto) 84.7 H Lymph % (Auto) 9.7 L [place] % (Auto) 4.4 Eos % (Auto) 0.5 Baso % (Auto) 0.3 Lymph # (Auto) 1.2 [place] # (Auto) 0.6 Eos # (Auto) 0.1 Baso # (Auto) 0.0 Abs Immat Gran (auto) 0.05 H Absolute Neuts (auto) 10.7 H Absolute Nucleated RBC 0.000 Nucleated RBC % (auto) 0.0 PT 11.7 INR 1.0 APTT 26.8 D-Dimer High Sensitivty 166 Sodium 142 Potassium 4.3 Chloride 103 Carbon Dioxide 28 Anion Gap 15 BUN 14 Creatinine 1.40 Estim Creat Clear Calc 83.5 Estimated GFR 57 Random Glucose 122 H Calcium 9.7 Magnesium 2.0 Total Bilirubin 0.3 AST 23 ALT 19 Alkaline Phosphatase 80 Troponin I High Sens 43.5 H 68.5 H D C-Reactive Protein 0.50 Total Protein 7.7 Albumin 4.7 11/24/23 11/24/23 03:22 04:51 WBC 8.8 RBC 4.52 L Hgb 13.2 L Hct 39.5 L MCV 87.4 MCH 29.2 MCHC 33.4 RDW 12.7 Plt Count 322 MPV 9.7 Immature Gran % (Auto) 0.3 Neut % (Auto) 54.8 Lymph % (Auto) 33.3 [place] % (Auto) 7.7 Eos % (Auto) 3.1 Baso % (Auto) 0.8 Lymph # (Auto) 2.9 [place] # (Auto) 0.7 Eos # (Auto) 0.3 Baso # (Auto) 0.1 Abs Immat Gran (auto) 0.03 Absolute Neuts (auto) 4.8 Absolute Nucleated RBC 0.000 Nucleated RBC % (auto) 0.0 PT INR APTT D-Dimer High Sensitivty Sodium 141 Potassium 3.9 Chloride 107 Carbon Dioxide 26 Anion Gap 12 BUN 14 Creatinine 1.07 Estim Creat Clear Calc 110.3 Estimated GFR > 60 Random Glucose 109 Calcium 9.1 D Magnesium 2.1 Total Bilirubin AST ALT Alkaline Phosphatase Troponin I High Sens 115.7 H* D C-Reactive Protein Total Protein Albumin Discharge Plan Discharge Anticipated Discharge Date/Time: 11/24/23 09:33 Patient Disposition: Xfer Acute Care Hospital Discharge Diagnosis: Chest pain, Elevated troponin Referrals: [facility] [Outside] - 1 Week Physician,Unknown J [Primary Care Provider] - 1 Week Discharge Medications: New heparin(porcine) in 0.45% NaCl 25,000 unit/250 mL Parenteral Solution 25,000 unit continuous IV infusion .Q0M Qty: 6000 0RF Rx Instructions: heparin drip per institutional protocol aspirin 81 mg capsule 81 mg PO DAILY Qty: 20 0RF atorvastatin [Lipitor] 80 mg tablet 80 mg PO BEDTIME Qty: 30 0RF No Action No Known Home Meds Discharge Orders: Discharge Order (Routine); Ordered 11/24/23 Ordered By: Sincere Constantino Diet: Advance to usual diet Activity on Discharge: As tolerated Stand Alone Forms: Patient Portal Discharge page Print Language: [place]ralt[place] Care Plan Goals: for cardiac workup for chest pain Health Concerns: chest pain, elevated troponin I Plan of Treatment: transferred to [facility] for cardiac catheterization. Assessment: See above
--- NOTE | 2023-11-24 09:31 | PC.NURSE ---
medication administered per provider order.
--- NOTE | 2023-11-24 09:34 | P.CONCA_ITS ---
History of Present Illness History of Present Illness Date of Service: 11/24/23 Requesting physician: Sincere Constantino Consult reason: troponin elevation Chief complaint: Chest Pain, Acute Pericarditis Narrative: I was consulted to see Dustin in cardiology consultation today for chest pain with elevated troponins. He is a pleasant 38-year-old male with no significant past medical history. He said yesterday evening he was boxing and he was actually sparring with a pro. He said he was really pushing himself hard and they were actually boxing with taking body blows. He said he was taking taking body blows without padding sometimes. But he said he was really pushing himself and push himself beyond exertion yesterday. He said he felt really tired. Then he went home and was resting and took a meal and then subsequently started getting pressure in his chest which was quite heavy radiating to both arms. He said he has never had these symptoms in the past. He then started coming down the apartment and had more discomfort with exertion. Therefore decided come to the emergency room. When he came to the emergency room E was immediately taken inside and he had initial EKG showed nonspecific ST elevation. He subsequently had nitrates and aspirin in his symptoms subsequently subsided. He has remained chest pain-free since then. He had no associated shortness of breath, nausea, vomiting, diaphoresis. No recent while symptoms. He was subsequently repeat EKG which showed further nonspecific ST elevation in anterolateral inferior lead. STEMI team was called. They felt that this did not meet the criteria for STEMI and he was admitted here. Initially got heparin but this heparin was discontinued. He subsequently got colchicine for suspected pericarditis. His echocardiogram was done at pending and preliminary report suggests no wall motion abnormality. His troponins initially were mildly positive then continued to rise up to troponin of 120s. He feels well at this point time. Hemodynamically stable with no cardiac arrhythmias. Review of Systems 2 Constitutional: Constitutional: Reports no additional constitutional complaints Eyes: Eyes: Reports no additional eye complaints ENT: Denies nasal congestion and Denies other (Sore throat) Cardiovascular: Cardiovascular: Reports chest pain at rest, Denies rapid heart rate, Denies leg edema, Denies lightheadedness, Denies Loss of Consciousness, Denies palpitations and Denies dyspnea Respiratory: Respiratory: Denies cough and Denies dyspnea Gastrointestinal: Gastrointestinal: Denies no additional gastrointestinal complaints Genitourinary: Genitourinary: Denies no additional male genitourinary complaints Musculoskeletal: Musculoskeletal: Denies no additional musculoskeletal complaints Integumentary/Breasts: Skin/Breast: Denies system reviewed and no additional complaints, except as docu Neurologic: Denies system reviewed and no additional complaints, except as documented Psychiatric: Psychiatric: Denies no additional psychiatric complaints Endocrine: Endocrine: Denies palpitations Hematologic/Lymphatic: Hematologic/Lymphatic: Denies no additional hematologic/lymphatic complaints [facility] Social History Social History Alcohol intake: current Alcohol intake frequency: holidays/special occasions only Smoked in Last 30 Days: No Use of substances other than those prescribed or required for medical reasons: Yes Substance Use Type: Marijuana Substance Use Frequency: Chronic Longstanding Advance Directives: No Advance Directives Information Provided: Yes Do you have a plan to hurt others: No Plan Meds Allergies Allergy/AdvReac Type Severity Reaction Status Date / Time No Known Allergies* Allergy Unknown Uncoded 11/23/23 22:39 Active Medications: Current Medications Acetaminophen (Acetaminophen 325 Mg Tablet) 975 mg PO Q6H PRN PRN Reason: Pain, Mild (Pain Scale 1-3), fever or headache Al Hydroxide/Mg Hydroxide (Magnesium Hydrox/Alum Hydrox 30 Ml Oral.Susp) 30 ml PO ONCE PRN PRN Reason: Heartburn Aspirin (Aspirin 325 Mg Tablet) 650 mg PO TID [facility] Last Admin: 11/24/23 09:30 Dose: 650 mg Calcium Carbonate (Calcium Carbonate 750 Mg Tab.Chew) 750 mg PO Q4H PRN PRN Reason: Heartburn Colchicine (Colchicine 0.6 Mg Tablet) 0.6 mg PO BID [facility] Melatonin (Melatonin 3 Mg Tablet) 6 mg PO BEDTIME PRN PRN Reason: Insomnia Omeprazole (Omeprazole 40 Mg Capsule.Dr) 40 mg PO DAILY@0630 [facility] Last Admin: 11/24/23 09:30 Dose: 40 mg Sodium Chloride (0.9 % Sodium Chloride Flush 3 Ml Syringe) 3 ml IVFLUSH QSHIFT [facility] Last Admin: 11/24/23 08:17 Dose: Not Given Home Medications ?Medication ?Instructions ?Recorded ?Confirmed ?Last Taken ?Type No Known Home Meds 11/24/23 11/24/23 Unknown History Physical Exam 2 Vital Signs: Vital Signs: Last Vital Signs Temp 97.7 F 11/24/23 06:30 Pulse 57 11/24/23 06:30 Resp 14 11/24/23 06:30 BP 129/70 11/24/23 06:30 Pulse Ox 97 11/24/23 06:30 O2 Del Method Room Air 11/24/23 06:30 BMI result Body Mass Index 37.0 Const: General: cooperative, comfortable, no acute distress, well developed, alert and awake Nutritional Appearance: well nourished and obese O rientation/consciousness: patient oriented x3 Limitations: no limitations HEENT: Head: Yes normocephalic and Yes atraumatic Neck: Neck: Yes trachea midline, Yes supple and Yes no JVD Resp: Effort & Inspection: normal respiratory effort Auscultation: clear to auscultation bilaterally Cardio: Jugular venous distension: no JVD Palpation: normal PMI Rate: r egular rate Rhythm: regular rhythm Heart sounds: S1 normal heart sound present, S2 normal heart sound present, no click, no gallops and no murmurs GI: Auscultation: normal bowel sounds Skin: General skin exam: no rashes or lesions noted Neuro: General: patient oriented x3 and no focal motor deficits Extrem: General: Yes no clubbing, cyanosis or edema Objective Labs and Meds 11/24/23 04:51 11/24/23 04:51 Lab results: Laboratory Results - last 24 hr 11/23/23 11/23/23 11/24/23 22:49 23:58 00:43 WBC 12.6 H RBC 4.88 Hgb 14.5 Hct 42.0 MCV 86.1 MCH 29.7 MCHC 34.5 RDW 12.5 Plt Count 373 MPV 9.3 L Immature Gran % (Auto) 0.4 Neut % (Auto) 84.7 H Lymph % (Auto) 9.7 L [place] % (Auto) 4.4 Eos % (Auto) 0.5 Baso % (Auto) 0.3 Lymph # (Auto) 1.2 [place] # (Auto) 0.6 Eos # (Auto) 0.1 Baso # (Auto) 0.0 Abs Immat Gran (auto) 0.05 H Absolute Neuts (auto) 10.7 H Absolute Nucleated RBC 0.000 Nucleated RBC % (auto) 0.0 PT 11.7 INR 1.0 APTT 26.8 D-Dimer High Sensitivty 166 Sodium 142 Potassium 4.3 Chloride 103 Carbon Dioxide 28 Anion Gap 15 BUN 14 Creatinine 1.40 Estim Creat Clear Calc 83.5 Estimated GFR 57 Random Glucose 122 H Calcium 9.7 Magnesium 2.0 Total Bilirubin 0.3 AST 23 ALT 19 Alkaline Phosphatase 80 Troponin I High Sens 43.5 H 68.5 H D C-Reactive Protein 0.50 Total Protein 7.7 Albumin 4.7 11/24/23 11/24/23 03:22 04:51 WBC 8.8 RBC 4.52 L Hgb 13.2 L Hct 39.5 L MCV 87.4 MCH 29.2 MCHC 33.4 RDW 12.7 Plt Count 322 MPV 9.7 Immature Gran % (Auto) 0.3 Neut % (Auto) 54.8 Lymph % (Auto) 33.3 [place] % (Auto) 7.7 Eos % (Auto) 3.1 Baso % (Auto) 0.8 Lymph # (Auto) 2.9 [place] # (Auto) 0.7 Eos # (Auto) 0.3 Baso # (Auto) 0.1 Abs Immat Gran (auto) 0.03 Absolute Neuts (auto) 4.8 Absolute Nucleated RBC 0.000 Nucleated RBC % (auto) 0.0 PT INR APTT D-Dimer High Sensitivty Sodium 141 Potassium 3.9 Chloride 107 Carbon Dioxide 26 Anion Gap 12 BUN 14 Creatinine 1.07 Estim Creat Clear Calc 110.3 Estimated GFR > 60 Random Glucose 109 Calcium 9.1 D Magnesium 2.1 Total Bilirubin AST ALT Alkaline Phosphatase Troponin I High Sens 115.7 H* D C-Reactive Protein Total Protein Albumin Imaging Radiologist's impression: Impressions Chest X-Ray 11/23/23 23:43 IMPRESSION: Unremarkable examination. Assessment and Plan (1) Acute coronary syndrome: Status: Acute Patient with symptoms of chest pressure associated elevated troponin with rising pattern with EKG changes with nonspecific ST elevation after over exerting himself. Acute coronary syndrome and plaque rupture needs to be ruled out. Other potential differential diagnosis include myocardial contusion from boxing related injury as well as possibly over exertion/stress-induced cardiomyopathy. However these are diagnose of exclusion. Would suggest a cardiac catheterization to evaluate coronary anatomy. Discussed with him. We discussed the risks, benefits, alternatives to procedure. He understands agrees. Further treatment based on finding. If the cardiac catheterization shows normal coronary arteries would suggest cardiac MRI for prognostic purposes. I would treat him metoprolol to reduce risk of cardiac arrhythmias in the next 4-6 weeks. Beyond that I would suggest that he probably does not need metoprolol therapy. Discussed with him about restriction with boxing over the next 4-6 weeks and avoiding sudden exertional activity over the next 4-6 weeks while myocardial recovery happens. He understands and agrees. Low-dose aspirin for now. Will review his echocardiogram. Patient being transferred to [facility]. Will follow with him as outpatient. Procedures Date of Service Date of Service: 11/24/23
--- NOTE | 2023-11-24 10:15 | PC.NURSE ---
delay in medication administration d/t medication not being readily available in [facility]. medication delivered from pharmacy/administered. plan of care ongoing.
--- NOTE | 2023-11-24 10:48 | PC.NURSE ---
pt ambulated to the standing scale w/ a strong/steady gait independently. height/weight confirmed for heparin drip. pharmacy notified/aware.
--- NOTE | 2023-11-24 11:12 | PC.NURSE ---
heparin bolus of 4,000 units via IVP not given per Dr. Moreno since pt received original heparin bolus of 5,000 units at 0139 this am. tech currently bedside/obtaining labs. this communications writer will start heparin drip when labs have resulted. plan of care ongoing.
[2023-11-24 11:29] LABS: Hematocrit 40.9 % (42.0-52.0); Hemoglobin 13.6 g/dl (14.0-18.0); Mean Corpuscular HGB Conc 33.3 g/dl (31.0-36.0); Mean Corpuscular Hemoglobin 29.4 pg (27.0-33.0); Mean Corpuscular Volume 88.3 fL (80.0-98.0); Mean Platelet Volume 9.5 fL (9.4-12.4); Platelet Count 312 X10*3/uL (160-400); Red Blood Count 4.63 X10*6/uL (4.60-5.80); Red Cell Distribution Width 12.7 % (11.0-16.0); White Blood Count 7.9 X10*3/uL (4.8-10.8)
--- NOTE | 2023-11-24 11:31 | MHC.CM.PN ---
CM met with Patient at bedside, in the ED. Patient lives in an apartment with his Girlfriend and 3 children ranging in age from 6-14 years of age and he is functionally independent. Per MD, Patient will be transferred to [facility] today.
[2023-11-24 11:32] LABS: Prothrombin Time 12.2 SEC (11.1-13.3)
[2023-11-24 11:44] LABS: Troponin-I High Sensitivity 1792.7 ng/L (<3.5-35.0)
[2023-11-24] MEDS: Heparin Sodium,Porcine/1/2NS 25,000 UNIT/250 ML IV.SOLN 10 UNIT IVCONT (11:46)
--- NOTE | 2023-11-24 11:49 | PC.NURSE ---
heparin drip started at 9.234 u/kg/hr (10mls/hr) at this time. dual check verified w/ LISA Montoya. critical lab value - troponin of 1,792.7 received at 11:44 - dr. matute/dr. motley notified/aware immediately.
[2023-11-24] MEDS: Heparin Sodium,Porcine 5,000 UNIT/ML VIAL 2500 UNIT IVPUSH (12:23)
--- NOTE | 2023-11-24 12:24 | PC.NURSE ---
2,500 unit heparin bolus dose administered IVP per Dr. Moreno at this time.
--- NOTE | 2023-11-24 16:10 | PC.NURSE ---
Report given to Estela, at this time. pt currently being transported to [facility] ([id number]).
--- NOTE | 2023-11-24 16:18 | PC.NURSE ---
report given to LISA Golden on M7 at [facility].
== END 2023-11-24 16:44 | disposition short-term general hospital (02) | DRG 207 ==
LOC: HO.ED 11-24 01:29 → HO.EDOVER 11-24 03:52
PROVIDERS: Admitting Provider Internal Medicine; Emergency Provider Internal Medicine; Visit Provider Internal Medicine
DX: I30.9 Acute pericarditis, unspecified (principal); I24.9 Acute ischemic heart disease, unspecified; E66.8 Other obesity; K21.9 Gastro-esophageal reflux disease without esophagitis; Z68.37 Body mass index [BMI] 37.0-37.9, adult; Z71.3 Dietary counseling and surveillance; Y93.71 Activity, boxing
CPT/HCPCS: 36415; 71045; 80048; 80053; 83735; 84484; 85025; 85027; 85379; 85610; 85730; 86140; 93005; 93306; 99285; J1644; Q9957

== ENCOUNTER → 2023-11-23 22:33 | Outpatient (BNV) | payer MEDICAID, SELFPAY | PROVIDERS: Admitting Provider Internal Medicine; Emergency Provider Internal Medicine; Visit Provider Internal Medicine Cardiovascular Disease | DX: R07.9 Chest pain, unspecified (principal); R94.31 Abnormal electrocardiogram [ECG] [EKG] | CPT/HCPCS: 93010 ==

== ENCOUNTER → 2023-11-24 03:47 | Outpatient (BNV) | payer MEDICAID, SELFPAY | PROVIDERS: Admitting Provider Internal Medicine; Emergency Provider Internal Medicine; Visit Provider Internal Medicine Cardiovascular Disease | DX: I24.9 Acute ischemic heart disease, unspecified (principal); R94.31 Abnormal electrocardiogram [ECG] [EKG]; R00.1 Bradycardia, unspecified | CPT/HCPCS: 93010; 93306; 99222 ==

== ENCOUNTER → 2023-11-24 03:47 | Outpatient (BNV) | payer MEDICAID, SELFPAY | PROVIDERS: Admitting Provider Internal Medicine; Emergency Provider Internal Medicine; Visit Provider Internal Medicine | DX: I30.9 Acute pericarditis, unspecified (principal); R07.9 Chest pain, unspecified; R12 Heartburn | CPT/HCPCS: 99239; 99499 ==

== ENCOUNTER 2023-12-01 10:28 | Outpatient (REF) | payer MEDICAID, SELFPAY ==
[2023-12-01 14:43] LABS: Appearance Urine Clear; Color Urine Yellow; Glucose Urine UA Negative (Negative); Leukocyte Esterase Urine Negative (Negative); Nitrite Urine Negative (Negative); PH 5.5 (5.0-9.0); Urine Blood Negative (Negative); Urine Ketones Negative (Negative); Urine Protein Negative (Neg-Trace)
[2023-12-01 14:51] LABS: Bacteria Urine None Seen (None Seen); Hyaline Casts Urine 0-2 /LPF (0-2); RBC Urine 0-2 /HPF (0-2); Squamous Epithelial Cell Urine 0-2 /HPF (0-2); WBC Urine 0-5 /HPF (0-5)
[2023-12-02 04:45] LABS: Syphilis Screen Nonreactive (Nonreactive)
[2023-12-02 05:13] LABS: HBS Num1 1.31 mIU/mL (0-7.99); HIV AB/AG Nonreactive (Nonreactive); HIV Num 1 0.07 S/CO (0.00-0.99); ~HepC Num1 0.19 S/CO (0.00-0.79); ~Hepatitis B Surface Antibody NONREACTIVE (Nonreactive); ~Hepatitis C Antibody Nonreactive (Nonreactive)
== END 2023-12-01 10:29 | disposition home or self-care (01) ==
LOC: HO.CHCLDS 10:28
PROVIDERS: Visit Provider Internal Medicine
DX: Z11.3 Encounter for screening for infections with a predominantly sexual mode of transmission (principal); Z11.4 Encounter for screening for human immunodeficiency virus [HIV]
CPT/HCPCS: 36415; 81001; 86706; 86780; 86803; 87389

== ENCOUNTER → 2024-04-27 11:33 | Outpatient (BNV) | payer MEDICAID, SELFPAY | PROVIDERS: Visit Provider Radiology Diagnostic Radiology | DX: R05.9 Cough, unspecified (principal); R50.9 Fever, unspecified | CPT/HCPCS: 71046 ==

== ENCOUNTER 2024-06-26 10:37 | Outpatient (REF) | payer MEDICAID, SELFPAY ==
--- OUTSIDE RECORDS SUMMARY | 2024-06-26 11:59 | XMS_ITS | Encounter Summary ---
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 Name Role Phone Ravi Carlos MD Primary Care Provider [phone] Reason for Visit * Reason Comments Pre-visit Planning SDOH unable to reach LVM Encounter Details Date Type Department Care Team ([facility] Contact Info) Description 06/19/2024 Patient Outreach [facility] [address], [place] [phone] Ravi Carlos MD [address] [place] [address] Pre-visit Planning (SDOH unable to reach LVM ) Social History Tobacco Use Types Packs/Day Years Used Date Smoking Tobacco: Former Cigarettes 0.3 14 S tarted: 2000 Passive Smoke Exposure: Past Smokeless Tobacco: Never Housing Stability Answer Date Recorded What is your housing situation today? I have brad cabrera 10/27/[address] you li ve. Do you have problems with any of the following? None of the above 10/27/2023 Food Insecurity Answer Date Recorded Within the past 12 months, y ou worried that your food would run out before you got money to buy more: Sometimes True 2023 Within the past 12 months,th e food you bought just didn't last and you didn't have enough money to get more: Sometimes True 10/27/2023 Transportation Answer Date Recorded In the past 12 months, has l ack of transportation kept you from medical appts, meetings, work or from getting things needed for daily living? No 10/27/2023 Utilities Answer Date Recorded In the past 12 months, has t he electric, gas, oil or water company threatened to shut off services in your home? No 10/27/2023 Internet Access Answer Date Recorded Internet Access Q1 Yes 12/20/2023 Internet Access Q2 Not on file 12/20/2023 Sex and Gender Information Value Date Recorded Sex Assigned at Male 02/16/2022 10:17 AM EDT Legal Sex Male 10:17 AM EDT Gender Identity Male 02/16/2022 10:17 AM EDT Sexual Orientation Straight 02/16/2022 10 :17 AM EDT documented as of this encounter Progress Notes * Angeli Frias - 06/19/2024 12:02 PM EST MARK Hermosillo placed outbound call to patient to complete pre-visit planning. No answer at this time. Patient name and were not confirmed. CC left voicemail requesting return call. Direct contactinformation provided. documented in this encounter Plan of Treatment Upcoming Encounters Date Type Department Care Team (Late st Contact Info) Description 08/22/2024 10:45 AM EDT Office Visit [facility] [address] [place] [address] Ravi Carlos MD [address] [place] [address] documented as of this encounter Visit Diagnoses Not on filedocumented in this encounter Care Teams Auto Heater Mechanic Relationship Specialty Start Date End Date Ravi Carlos MD [address] [place] [address] PCP - General Internal Medicine 12/01/23 documented as of this encounter
--- OUTSIDE RECORDS SUMMARY | 2024-06-26 11:59 | XMS_ITS | Data Portability ---
Author Organization [facility], [facility] Address [address] [place] [address] Assessment Encounter Date Assessment Date Assessment LastModified by Organization Details LastModified Time 02/07/2024 02/07/2024 I am seeing the patient today under the supervision of Dr. Collins who was available but who did not see the patient. HPI: 38-year-old male seen for me. First time, had an inversion injury to his right ankle proximal to 3 weeks when he is playing basketball with his son. He came down and stepped on his son's shoe and turned his ankle and inversion. No pain, swelling. He was seen elsewhere. He used a brace for a few weeks and has weaned from it. He complains of some mild discomfort. Past family, medical, social history and review of systems has been reviewed, updated and is located in the patient? s chart. Examination: the patient is alert and cooperative in no acute distress. Afebrile, vital signs stable. There is active ROM of the hips and knees, calves are soft and nontender there is active range of motion right ankle, AP plane. No tibiotalar tenderness. No medial sided tenderness. There is tenderness, swelling the lateral malleolus. No gross instability. No ecchymosis. There is intact. Resisted motion, foot and ankle all planes. No instability appreciated. Circulation and sensation are intact distally X-rays done previously suggested on one view a small avulsion fracture of the distal fibula Impression:, Right lateral ankle sprain with fibular avulsion fracture Plan:. Patient has minimally symptomatic. I recommended use of a semirigid ankle support and ankle rehabilitation home exercises. He may progress his activities as tolerated. When he returns to sports can use a semirigid ankle support. Recheck with me if needed [email or web address] Not available 02/07/2024 10:42:18 Plan of Treatment Reminders Order Date Submit Date Provider Last Modified By Organization Details Last Modified Time Details Appointments None recorded . Lab None recorded . Referral None recorded . Procedures None recorded . Surgeries None recorded . Imaging XR, ankle, 3 or more view 2023 024 [email or web address] [facility] Office, [address], [place], [address], 4 10:55:32 XR, tibia + fibula, 2 view - new pt 3 views left tib/fib room u/c 4 2023 024 [facility] Office, [address], [place], [address], 4 11:52:44 Medication Orders meloxica m 15 mg tablet 2023 024 [id number], [address] [place], [address], 4 11:52:44 Patient TargetsNo targets recorded. Patient InstructionsNo instructions recorded. Reason for Referral None Reported. Results Created Date Observation Date Name Description Value Unit Range Abnormal Flag Note LastModifiedBy Organization Detail LastModifiedTime 02/07/2002/07/2024 XR, ankle , 3 or more view [email or web address] ?Encry pted=s hAaTro YD8dLq bEUv6g %2BXZw aYqtaq 0bqfl% 2Fg9IQ a4ajBk vP9nXo QUaueC m3YtLR FvZlgJ JJ8mAn HZtai3 5m9514 AC0Kqa 3WNVKK mKiQtr MwF INTERFACE [facility] [address], [place], [address], 02/07/2024 10:11:50 02/07/2002/07/2024 XR, ankle , 3 or more view [email or web address] ?Encry pted=s hAaTro YD8dLq bEUv6g %2BXZw aYqtaq 0bqfl% 2Fg9IQ a4ajBk vP9nXo QUaueC m3YtLR FvZlgJ JJ8mAn HZtai3 4z6022 AC0Kqa 3WNVKK mKiQtr MwF INTERFACE [facility] [address], [place], [address], 02/07/2024 10:11:52 Result Notes None recorded. Procedures Surgical History None recorded. Imaging Results Imaging Date Name Status LastModified by Organiz [facility] Details LastModified Time 02/07/2024 XR, ankle, 3 or more view completed INTERFACE [facility] [address], [place], [address], 02/07/2024 10:11:50 02/07/2024 XR, ankle, 3 or more view completed INTERFACE [facility] [address], [place], [address], 02/07/2024 10:11:52 Procedure Notes None recorded. Medical Equipment None Reported. Medications Name Sig Start Date Stop Date Status Note LastModified by Organization Details LastModified Time acetaminophen 325 mg tablet TAKE 3 TABLETS BY MOUTH EVERY 6 HOURS NEEDED FOR MODERATE PAIN active Not Available Not Available No t Available doxycycline hyclate 100 mg capsule TAKE 1 CAPSULE BY MOUTH TWICE A DAY FOR 5 DAYS active Not Available Not Available No t Available meloxicam 15 mg tablet Take 1 tablet every day by oral route for 30 days. 2023 active Not Available Not Available Not Avai lable acetaminophen 500 mg tablet TAKE 2 TABLETS BY MOUTH 3 TIMES A DAY NEEDED FOR FEVER FOR 10 DAYS active Not Available Not Available No t Available amoxicillin 875 mg tablet TAKE 1 TABLET BY MOUTH TWICE A DAY FOR 10 DAYS active Not Available Not Available No t Available aspirin 325 mg tablet,delayed release TAKE 2 TABLETS BY MOUTH THREE TIMES A DAY FOR 14 DAYS active Not Available Not Available No t Available ibuprofen 200 mg tablet TAKE 3 TABLETS BY MOUTH EVERY 6 HOURS NEEDED FOR PAIN active Not Available Not Available No t Available colchicine 0.6 mg tablet TAKE 1 CAPSULE BY MOUTH TWO TIMES A DAY active Not Available Not Available No t Available Murine Ear 6.5 % drops ISNTILL 2 DROPS INTO BOTH EARS EVERY 12 HOURS FOR 4 DAYS active Not Available Not Available No t Available naproxen 500 mg tablet TAKE 1 TABLET BY MOUTH TWICE A DAY NEEDED FOR PAIN active Not Available Not Available No t Available amoxicillin 875 mg-potassium clavulanate 125 mg tablet TAKE 1 TABLET BY MOUTH EVERY 12 HOURS FOR 5 DAYS active Not Available Not Available No t Available Vitals Date Recorded Body height Body mass index (BMI) Body weight Provider Name and Address Organization Details Last Updated DateTime 07/29/2023 152.4 cm 48.8 kg/m2 122540.09 g Anna Clark [facility] 07/29/2023 11:48:10 Date Recorded Body height Body mass index (BMI) Body weight Provider Name and Address Organization Details Last Updated DateTime 02/07/2024 152.4 cm 48.8 kg/m2 735898.09 g CLARISSE PARKEROS [facility] 02/07/2024 10:03:21 Social History None recorded. Functional Status None recorded. Mental Status None recorded. Family History Nothing Reported. Medical History No medical history recorded. Past Encounters Encounter ID Performer Location Encounter Start Date Encounter Closed Date Diagnosis/Indication Diagnosis SNOMED-CT Code Diagnosis ICD10 Code Diagnosis Note [id number] Ceci Chavez [place] [address] 07/29/2023 09:38:12 08/18/2023 16:00:36 Pain of left lower leg 7810043411 72913 M79.805 [id number] ESPERANZA Munoz [address] [place] [address] 02/07/2024 09:48:01 02/21/2024 12:09:16 Acute ankle pain 4191835414 9105 M25.571 Fracture o f distal end of fibula 226948232 S82.839A Sprain of calcaneofibular ligament of right ankle joint 5092564731 2347922 S93.411A Health Concerns Section Related Observation LastModified by Organization Detai ls LastModified Time None Recorded Concern Status LastModified by Organization Details LastModified Time None Recorded Advance Directives Directive None Recorded Payers Encounter Date Sequence Insurance Name Policy Number Policy Velazquez Covered Member ID Velazquez Member ID Guarantor Name 07/29/2023 1 [place] ZACHERY Abraham [id number] Dustin Abraham 02/07/2024 1 [place] [facility] [id number] Dustin Abraham Notes Date Note Type Note Provider Name and Address Organization Details Recorded Time 07/29/2023 text/html I am seeing the patient today under the supervision of Dr. Judd who was available but did not see the patient.Urgent care walk in clinicHPI: Patient is a 38-year-old male presents today for evaluation for today left calf injury. Patient states that he was playing catch with his son on 07/27/2023 when he felt a sharp pain in his calf. He felt a pull. He had pain immediately. He was unable to continue. Denies any previous injuries or surgeries to his calf has been utilizing Tylenol and ibuprofen as needed for pain relief which provided limited relief. Patient has a previous history of a Achilles tendon rupture on the contralateral side, he states he feels slightly different than this. Otherwise healthy 19 medications. Denies numbness and tingling. Denies smoking history.Past family, medical, social history and review of systems has been reviewed, updated and signed by me and is located in the patient's chart.Examination: The patient is well appearing and in no apparent distress. Alert and oriented x3. Gait is symmetric. Upper extremity exam: Skin is intact without evidence of erythema edema was noted. No evidence of appreciable deformity noted to inspection or palpation patient is tender to palpation about the medial gastroc Antonella palpable deformity noted. Intact Achilles tender to palpation with unremarkable Henderson's testing. Neurovascular intact distally. Discomfort with plantar flexion and dorsiflexion of the ankle. Intact extension and flexion of the knee. Unremarkable Zeynep testing. Calf is soft.X-rays ordered, obtained and reviewed at [facility]: 2 views of the tib-fib were taken reviewed and signed by myself today. They demonstrate no evidence of obvious fracture or dislocation noted.Impression: Left medial gastroc strain/partial tearPlan: Discussed my findings with the patient today. .We discussed potential treatment options at this time. Patient Will undergo boot immobilization for the next few weeks. Patient may come out of the boot a couple times a day to work on light calf stretching exercises. Patient will follow-up in 3 weeks for reevaluation and hopeful transition into normal shoe wear with some physical therapy. He is encouraged to continue utilizing Tylenol and ibuprofen. He will hold off on high impact activities. All questions or concerns were answered and addressed. Speech recognition wedding transportation driver software was used to create portions of this document. An attempt at proofreading has been made to minimize errors. Please call for corrections.The patient is ambulatory, but has weakness and/or instability of their extremity which requires stabilization from this semi-rigid/rigid orthosis to improve their function.Verbal and written instructions for the use and application of this item were given. Patient was instructed that should the brace result in increased pain, decreased sensation, increased swelling or an overall worsening of their medical condition, to please contact our office immediately. Ceci Chavez PA-C [address], [place], [address], [facility] 07/29/2023 15:36:08
--- OUTSIDE RECORDS SUMMARY | 2024-06-26 12:00 | XMS_ITS | Encounter Summary ---
Author Organization [employer] Address [address] [place] [address] Care Team Providers Care Account Services Analyst Name Role Phone Ravi Carlos MD Primary Care Provider [phone] Reason for Visit * Reason Comments Annual Exam Encounter Details Date Type Department Care Team ([facility] st Contact Info) Description 06/26/2024 9:30 AM EDT Office Visit [facility] [address], [place] [id number] Ravi Carlos MD [address] [place] [address] Annual physical exam (Primary Dx); Dietary counseling; Exercise counseling; Class 2 obesity due to excess calories without serious comorbidity with body mass index (BMI) of 37.0 to 37.9 in adult; Impacted cerumen of left ear; Primary insomnia; Intertrigo of web of toe; Contusion of right front wall of thorax, subsequent encounter Social History Tobacco Use Types Packs/Day Years Used Date Smoking Tobacco: Former Cigarettes 0.3 14 S tarted: 2000 Passive Smoke Exposure: Past Smokeless Tobacco: Never Alcohol Answer Date Recorded Q1: How often do you have a drink containing alc ohol? 2 06/26/2024 Q2: How many drinks containi ng alcohol do you have on a typical day when you are drinking? 0 06/26/2024 Q3: How often do you have six or more drinks on one occasion? 2 06/26/2024 Depression Answer Date Recorded Patient Health Questionnaire-9 Score 3 06/26/2024 Patient Health Questionnaire-9 Score 3 06/26/2024 Last PHQ-9: Questionnaire Data Not on file 0 06/26/2024 Housing Stability Answer Date Recorded What is [...] off services in your home? No 10/27/2023 Depression Answer Date Recorded Patient Health Questionnaire-2 Score 0 06/26/2024 Internet Access Answer Date Recorded Internet Access Q1 Yes 12/20/2023 Internet Access Q2 Not on file 12/20/2023 Sex and Gender Information Value Date Recorded Sex Assigned at Male 02/16/2022 10:17 AM EDT Legal Sex Male 10:17 AM EDT Gender Identity Male 02/16/2022 10:17 AM EDT Sexual Orientation Straight 02/16/2022 10 :17 AM EDT documented as of this encounter Last Filed Vital Signs Vital Sign Reading Time Taken Comments Blood Pressure 124/77 06/26/2024 9:48 AM EDT Pulse 76 06/26/2024 9:48 AM EDT Temperature 36.6 ??C (97.9 ??F) 06/26/2024 9:48 AM ED T Respiratory Rate 20 06/26/2024 9:48 AM EDT Oxygen Saturation 98% 06/26/2024 9:48 AM EDT Inhaled Oxygen Concentration - - Weight 112 kg (248 lb) 06/26/2024 9:48 AM EDT Height 170.2 cm (5' 7 ) 06/26/2024 9:48 AM EDT Body Mass Index 38.84 06/26/2024 9:48 AM EDT documented in this encounter Plan of Treatment Upcoming Encounters Date Type Department Care Team (Late st Contact Info) Description 08/22/2024 10:45 AM EDT Office Visit [facility] [address] [place] [address] Ravi Carlos MD [address] [place] [address] Scheduled Orders Name Type Priority Associated Diagnoses Orde r Schedule CBC auto differential Lab Routine Annual physical exam Expected: 06/26/2024 (Approximate), Expires: 06/26/2025 documented as of this encounter Visit Diagnoses Diagnosis Annual physical exam- Primary Routine general medical examination at a health care facility Dietary counseling Dietary surveillance and counseling Exercise counseling Class 2 obesity due to excess calories without serious comorbidity with body mass index (BMI) of 37.0 to 37.9 in adult Impacted cerumen of left ear Impacted cerumen Primary insomnia Persistent disorder of initiating or maintaining sleep Intertrigo of web of toe Contusion of right front wall of thorax, subsequent encounter documented in this encounter Additional Health Concerns Assessment Noted Time PHQ-9 Depression Total Score: 3 06/27/19 25 9:57 AM EDT documented as of this encounter Care Teams Account Services Analyst Relationship Specialty Start Date End Date Ravi Carlos MD [address] [place] [address] PCP - General Internal Medicine 12/01/23 documented as of this encounter
--- OUTSIDE RECORDS SUMMARY | 2024-06-26 12:00 | XMS_ITS | Clinical Summary ---
Author Organization [facility] Address [address] [place] [address] Phone Care Team Providers Care Best Worker Name Role Phone Gio Alvarenga Primary Care Provider [phone] Allergies No known active allergies Medications lidocaine (LIDODERM) 5 % patch Apply 1 patch topically 1 (one) time each day for 30 doses. Remove & discard patch within 12 hours or as directed by . 30 each 07/15/19 25 Active Encounters Date Type Department Care Team Description 06/14/2024 2:20 AM EST - 06/14/2024 3:37 AM EST Emergency [facility] Emergency [address] [place] [address] Omid Michel MD Chest wall contusion, right, initial encounter (Primary Dx) Discharge Disposition: Home or Self Care from Last 3 Months Social History Tobacco Use Types Packs/Day Years Used Date Smoking Tobacco: Never Assessed Sex and Gender Information Value Date Recorded Sex Assigned at Not on file Legal Sex Male 2:14 PM EST Gender Identity Not on file Sexual Orientation Not on file Last Filed Vital Signs Vital Sign Reading Time Taken Comments Blood Pressure 119/72 06/14/2024 2:00 AM EST Pulse 78 06/14/2024 2:00 AM EST Temperature 36.8 ??C (98.2 ??F) 06/14/2024 2:00 AM ES T Respiratory Rate 18 06/14/2024 2:00 AM EST Oxygen Saturation 95% 06/14/2024 2:00 AM EST Inhaled Oxygen Concentration - - Weight 107 kg (235 lb) 06/14/2024 2:00 AM EST Height 170.2 cm (5' 7 ) 06/14/2024 2:00 AM EST Body Mass Index 36.81 06/14/2024 2:00 AM EST Plan of Treatment Health Maintenance Due Date Last Done Comments Hepatitis B Vaccines (1 of 3 - 19+ 3-dose series) 2005 Cholesterol Screening (Lipid Panel) 11/09/2023 Depression Screening 11/09/2023 Social Influencers of Health Screening 11/09/2023 COVID-19 Vaccine (1 - 2023-2 5 season) 2023 Influenza Vaccine (#1) 2023 02/15/2017 DTaP,Tdap,and Td Vaccines (3 - Td or Tdap) 11/30/2026 11/30/2016, 12/06/2008 HIV Screening Completed 12/01/2023 Hepatitis C Screening Completed 12/01/2023 HIB Vaccines Aged Out No longer eligi ble based on patient's age to complete this topic HPV Vaccines Aged Out No longer eligi ble based on patient's age to complete this topic Hepatitis A Vaccines Aged Out No long er eligible based on patient's age to complete this topic IPV Vaccines Aged Out No longer eligi ble based on patient's age to complete this topic MMR Vaccines Aged Out No longer eligi ble based on patient's age to complete this topic Meningococcal ACWY Vaccine Aged Out N o longer eligible based on patient's age to complete this topic Meningococcal B Vacine Aged Out No lo nger eligible based on patient's age to complete this topic Pneumococcal Vaccine: Pediatrics (0 to 5 Years) and At-Risk Patients (6 to 64 Years) Aged Out No longer eligible b ased on patient's age to complete this topic RSV Immunization Patients Under 20 months Aged Out No longer eligible b ased on patient's age to complete this topic Varicella Vaccines Aged Out No longer eligible based on patient's age to complete this topic Procedures Procedure Name Priority Date/Time Associated Diagnosis Comments XR RIBS W CHEST 3+ VIEWS RIGHT STAT 06/14/2024 2:12 AM EST from Last 3 Months Results * XR Ribs w Chest 3+ Views Right (06/14/2024 2:12 AM EST) Anatomical Region Laterality Modality Body Right Radiographic Mary ging 06/14/2024 9:02 AM EST Impressions 06/14/2024 9:03 AM EST Impression: 1. No right rib fracture identified. 2. No active pulmonary process. Telerad PA ([id number]) -------- FINAL REPORT -------- Dictated By: Tamanna Roque Dictated Date: 06/14/2024 09:02 ET Assigned Physician: Tamanna Roque Reviewed and Electronically Signed By: Tamanna Roque Signed Date: 06/14/2024 09:03 ET Workstation ID: [id number] Transcribed By: Self Edit Transcribed Date: 06/14/2024 09:02 ET Narrative 06/14/2024 9:03 AM EST History: Right lower rib pain since injury playing basketball 2 days ago. Comparison: Two-view chest 01/01/05 Findings: An upright PA view of the chest and specific views of the right ribs are submitted. The cardiomediastinal silhouette, hilar contours and pulmonary vascularity are within normal limits. The lungs are clear. The costophrenic angles are sharp. No pneumothorax is seen. No right rib fracture is identified. Procedure Note Tamanna Roque MD - 06/14/2024 History: Right lower rib pain since injury playing basketball 2 daysago. Comparison: Two-view chest 01/01/05 Findings: An upright PA view of the chest and specific views of the right ribs aresubmitted. The cardiomediastinal silhouette, hilar contours and pulmonary vascularityare within normal limits. The lungs are clear. The costophrenic angles aresharp. No pneumothorax is seen. No right rib fracture is identified. IMPRESSION: Impression: 1. No right rib fracture identified. 2. No active pulmonary process. Telerad PA ([id number]) -------- FINAL REPORT -------- Dictated By: Tamanna Roque Dictated Date: 06/14/2024 09:02 ET Assigned Physician: Tamanna Roque Reviewed and Electronically Signed By: Tamanna Roque Signed Date: 06/14/2024 09:03 ET Workstation ID: [id number] Transcribed By: Self Edit Transcribed Date: 06/14/2024 09:02 ET us Scot Seema Michel MD IMG XR PROCEDURES Final Result from Last 3 Months Insurance MEDICAID - [place] Care Teams Best Worker Relationship Specialty Start Date End Date Gio Alvarenga PA [address] [place] [phone] PCP - General Physician Hat Presser 06/14/24
--- OUTSIDE RECORDS SUMMARY | 2024-06-26 12:00 | XMS_ITS | Clinical Summary ---
Author Organization [employer] Address [address] [facility] [address] [place] [address] Care Team Providers Care Sales Incentive Analyst Name Role Phone Ravi Carlos MD Primary Care Provider [phone] Allergies No known active allergies Medications acetaminophen (Tylenol) 325 MG tablet Take 325 mg by mouth every 6 (six) hours if needed for mild pain. OTC Active carbamide peroxide (Debrox) 6.5 % otic solutionIndicat ions:Impacted cerumen of left ear Administer 5-10 drops into affected ear(s) 2 times daily for 4 days. 30 mL 5 07/01/19 25 Active nystatin (Nystop) 088162 UNIT/GM powderIndicatio ns:Intertrigo of web of toe Apply topically 2 times daily. 60 g 1 5 06/27/19 26 Active ibuprofen 600 MG tabletIndicatio ns:Contusion of right front wall of thorax, subsequent encounter Take 1 tablet (600 mg) by mouth every 8 (eight) hours if needed for mild pain for up to 20 days. 30 tablet 1 5 07/17/19 25 Active Active Problems Problem Noted Date Diagnosed Date Class 2 obesity 02/02/2024 Encounters Date Type Department Care Team Description 06/26/2024 9:30 AM EDT Office Visit [facility] [address] [place] [address] Ravi Carlos MD Annual physical exam (Primary Dx); Dietary counseling; Exercise counseling; Class 2 obesity due to excess calories without serious comorbidity with body mass index (BMI) of 37.0 to 37.9 in adult; Impacted cerumen of left ear; Primary insomnia; Intertrigo of web of toe; Contusion of right front wall of thorax, subsequent encounter 06/26/2024 Travel 06/19/2024 Patient Outreach [facility] [address] [place] [address] Ravi Carlos MD Pre-visit Planning (SDFL unable to reach [facility] ) from Last 3 Months Immunizations Name Administration Dates Next Due Influenza injectable quadriv alent IIV4 with preservative 02/15/2017 Tdap 11/30/2016,12/06/2008 Family History Medical History Relation Name Comments Alcohol abuse Father liver cirrhosis Father Breast cancer Mother Relation Name Status Comments Father Mother Social History Tobacco Use Types Packs/Day Years Used Date Smoking Tobacco: Former Cigarettes 0.3 14 S tarted: 2000 Passive Smoke Exposure: Past Smokeless Tobacco: Never Tobacco Cessation:Counseling Given: Not Answered Alcohol Answer Date Recorded Q1: How often [...] Orientation Straight 02/16/2022 10 :17 AM EDT Last Filed Vital Signs Vital Sign Reading [...] Mass Index 38.84 06/26/2024 9:48 AM EDT Plan of Treatment Upcoming Encounters Date Type Department Care Team (Late st Contact Info) Description 08/22/2024 10:45 AM EDT Office Visit [facility] [address] [place] [address] Ravi Carlos MD [address] [place] [address] Health Maintenance Due Date Last Done Comments Lipid Panel 1986 Family Planning (PISQ) 2001 Hepatitis B Vaccines (1 of 3 - 19+ 3-dose series) 2005 Influenza Vaccine (#1) 2024 02/15/2017 Postp oned from 12/19/2023 (Patient Refused) SDOH Screening 10/24/2024 10/25/2023 COVID-19 Vaccine (1 - 2024-2 5 season) 2025 Postponed from 12/18 (Patient Refused) Alcohol/Substance Use Screening 06/26/2025 06/26/2024 Depression Screening 06/26/2025 06/26/2024, 06/26/2024 Tobacco Screening 06/26/2025 06/26/2024 DTaP/Tdap/Td Vaccines (3 - T d or Tdap) 11/30/2026 11/30/2016, 12/06/2008 Zoster Vaccines (1 of 2) 2036 RSV Patients and Patients Aged 60 years or older (1 - 1-dose 75+ series) 2061 HIV Screening Completed 12/01/2023 Hepatitis C Screening [...] patient's age to complete this topic Meningococcal Vaccine Aged Out No suzette lalit eligible based on patient's age to complete this topic Pneumococcal Vaccine: Pediatrics (0 to 5 Years) and At-Risk Patients (6 to 49) Years) Aged Out No longer eligible b ased on patient's age to complete this topic RSV under 20 months Aged Out No longe r eligible based on patient's age to complete this topic Rotavirus Vaccines Aged Out No longer eligible based on patient's age to complete this topic Procedures Procedure Name Priority Date/Time Associated Diagnosis Comments HEPATITIS C AB W/REFL TO HCV RNA, QN, PCR Routine 12/01/2023 10:30 AM EDT Screen for STD (sexually transmitted disease) HIV 1/2 ANTIGEN/ANTIBODY, FOURTH GENERATION W/RFL Routine 12/01/2023 10:30 AM EDT Screen for STD (sexually transmitted disease) from Last 3 Months or Most Recently Relevant to Health Maintenance Results * Hepatitis C Antibody with Reflex to HCV, RNA, Quantitative, Real-Time PCR (12/01/2023 10:30 AM EDT) Hepatitis C Antibody Nonreactive Nonreactive [facility] Comment:Antibodies to HCV no t detected; does not exclude early acuteHCV infection. Blood Venous blood specimen / Unknown 12/01/2023 10:30 AM EDT 12/01/2023 2:20 PM EDT us Ravi Carlos MD LAB BLOOD ORDERABLES Final Result Performing Organization Address [facility]/ZIP Co de Phone Number [facility] [address] [place] [address] [phone] * HIV-1/2 Antigen and Antibodies, Fourth Generation, with Reflexes (12/01/2023 10:30 AM EDT) [facility] HIV AB/AG Nonreactive Nonreactive [facility] Comment:HIV-1 p24 Ag and/or HIV-1/HIV-2 Ab not detected.A test result that is nonreactive does not exclude thepossibility of exposure to or infection with HIV-1 and/orHIV-2. Nonreactive results in this assay for individualswith prior exposure to HIV-1 and/or HIV-2 may be due toantigen and antibody levels that are below the limit ofdetection of this assay.The [employer] HIV Ag/Ab Combo assay result andsupplemental assay results should be interpreted inconjunction with the patient's clinical presentation,history and other laboratory results. If the results areinconsistent with clinical evidence, additional testing issuggested to confirm the result. Blood Venous blood specimen / Unknown 12/01/2023 10:30 AM EDT 12/01/2023 2:20 PM EDT us Ravi Carlos MD LAB BLOOD ORDERABLES Final Result Performing Organization Address [facility]/ZIP Co de Phone Number [facility] [address] [place] [address] [phone] from Last 3 Months or Most Recently Relevant to Health Maintenance Insurance [facility] C3 Care Teams Sales Incentive Analyst Relationship Specialty Start Date End Date Ravi Carlos MD [address] [place] [address] SATNAM Gonzales [address] PCP - General Internal Medicine 12/01/23
--- OUTSIDE RECORDS SUMMARY | 2024-06-26 12:00 | XMS_ITS | Encounter Summary ---
Author Organization [employer] Address [address] [place] [address] Care Team Providers Care Seismic Prospecting Observer Name Role Phone Gio Alvarenga Primary Care Provider [phone] Reason for Visit * Reason Comments Rib Injury Encounter Details Date Type Department Care Team (Late st Contact Info) Description 06/14/2024 2:20 AM EST - 06/14/2024 3:37 AM EST Emergency [facility] Emergency [address] [place] [address] Omid Michel MD [address] [place] [address] Chest wall contusion, right, initial encounter (Primary Dx) Discharge Disposition: Home or Self Care Social History Tobacco Use Types Packs/Day Years Used Date Smoking Tobacco: Never Assessed Sex and Gender Information Value Date Recorded Sex Assigned at Not on file Legal Sex Male 2:14 PM EST Gender Identity Not on file Sexual Orientation Not on file documented as of this encounter Last Filed [...] Mass Index 36.81 06/14/2024 2:00 AM EST documented in this encounter Functional Status * Are you deaf or do you have serious difficulty hearing? Answer Date of Assessment Author No 06/14/2024 2:42 AM Kayla Payne RN * Are you blind or do you have serious difficulty seeing, even when wearing glasses? Answer Date of Assessment Author No 06/14/2024 2:42 AM Kayla Payne RN * Do you have serious difficulty walking or climbing stairs? Answer Date of Assessment Author No 06/14/2024 2:42 AM Kayla Payne RN * Do you have serious difficulty dressing or bathing? Answer Date of Assessment Author No 06/14/2024 2:42 AM Kayla Payne RN * Because of a physical, mental, or emotional condition, do you have serious difficulty doing errandsalone such as visiting the doctor? Answer Date of Assessment Author No 06/14/2024 2:42 AM Kayla Payne RN documented as of this encounter Mental Status * Because of a physical, mental, or emotional condition, do you have serious difficulty concentrating, remembering, or making decisions? (5 years old or older) Answer Entry Date Author No 06/14/2024 2:42 AM Kayla Payne RN documented in this encounter Discharge Instructions * Discharge Instructions* Omid Michel MD - 06/14/2024 3:27 AM EST Your x-ray shows no evidence of a fracture. Use your Lidoderm patches as prescribed. Alternate Tylenol and ibuprofen as needed for pain relief -Take 600 mg of ibuprofen every 6 hours (do not exceed 2400 mg in 24 hrs) -Take 1000 mg of Tylenol every 6 hours (do not exceed 4000 mg in 24 hrs) -Stack these on top of each other as discussed (ie: Ibuprofen at 9 AM, Tylenol at noon, ibuprofen at 3 PM, Tylenol at 6 PM, etc) Follow up with your primary provider. Call tomorrow for an appointment. Return to Emergency Department if your symptoms worsen, don't improve, or any other concerns. Get well soon! Thank you for coming to the [facility] Emergency Department today. Our entire team works together to provide you with the best care possible. Examination and treatment you received in the emergency department has been rendered on an EMERGENCY basis only. It is not intended to be a substitute for or an effort to provide complete medical care. You should follow-up with your primary care provider. Please report to your physician any new or remaining problems, because it is impossible to recognize and treat all elements of injury or illness in a single emergency department visit. In the event that you're unable to obtain a followup appointment in a timely fashion, OR you are not getting any better, OR you are getting worse, OR you develop any symptoms of concern, please return here immediately for further evaluation. The emergency department is open 24 hours a day, 7 days aweek. Your discharge report is based on information that was available when you were in the emergency department. * Attachments The following attachments cannot be sent through Care Everywhere. * Rib Contusion (Botswanan) documented in this encounter Medications at Time of Discharge lidocaine (LIDODERM) 5 % patch Apply 1 patch topically 1 (one) time each day for 30 doses. Remove & discard patch within 12 hours or as directed by . 30 each 06/14/2024 5 documented as of this encounter Ordered Prescriptions Prescription Sig Dispense Quantity Refills Last Filled Start Date End Date lidocaine (LIDODERM) 5 % patch Apply 1 patch topically 1 (one) time each day for 30 doses. Remove & discard patch within 12 hours or as directed by . 30 each 06/14/2024 5 documented in this encounter Discharge Disposition Disposition Code Departure Means Destination Comment s Home or Self Care documented in this encounter Progress Notes * Dolores Mccann RN - 06/14/2024 1:59 AM EST PT STATES WAS PLAYING BASKETBALL W/ HIS SON ON WEDNESDAY, STATES HIS SON ELBOW HIS RIGHT LOWER CHEST WALL. PT STATES INCREASING PAIN IN THAT AREA UNRELIEVED BY OTC MEDS. STATES PAIN WORSENS WHEN DEEP BREATHING. SPEAKING IN FULL, CLEAR SENTENCES. * Omid Michel MD - 06/14/2024 1:53 AM EST Emergency Medicine Note Patient Name: Dustin Abraham Jr. Initial Evaluation: 06/14/2024 : 1985 Patient's PCP: SUDHIR Aviles Emergency Physician: Omid Michel MD History of Present Illness Chief Complaint: Chief Complaint Patient presents with Rib Injury HPI: 38-year-old male, no significant past medical history, presents with right lower rib pain. Patient states he was playing basketball with his son 2 days ago when he got hit in the right lower ribcage. He has had increasing pain in the right lower rib cage, pain with deep inspiration, pain withpalpation. He is concerned he may have a broken rib. He is not having any difficulty breathing, he has no fever, no cough, no other complaints except as above. ROS: I have performed a ROS with the pertinent positives and negatives documented in the history ofpresent illness. Previous History No past medical history on file. No past surgical history on file. No family history on file. has No Known Allergies. No current facility-administered medications on file prior to encounter. No current outpatient medications on file prior to encounter. Physical Exam ED Triage Vitals [06/14/24 0200] Temp Heart Rate Resp BP 36.8 ??C (98.2 ??F) 78 18 119/72 SpO2 Temp Source Heart Rate Source Patient Position 95 % Oral -- Sitting BP Location FiO2 (%) -- -- General: Well-appearing, well nourished, in no acute distress HEENT: PERRL, EOMI, external ears and nose appear unremarkable, airway is patent Neck: Supple, full range of motion Chest: Clear to auscultation; no evidence of respiratory distress. Tender to palpation right lateral ribs, no bony crepitus, no subcu emphysema palpated. Circulatory: RRR, extremities well perfused Abdomen: Non-distended, Non-Tender Extremities: Normal ROM, No edema Skin: Warm and dry Neuro: Alert and oriented, no focal deficits Results Labs Reviewed - No data to display Abnormal Labs Reviewed - No data to display XR Ribs w Chest 3+ Views Right (Results Pending) I have discussed the incidental/abnormal imaging and/or lab abnormalities with the patient and haveinstructed them the need for further evaluation and workup with their primary care doctor. I have provided the patient with a paper copy of the abnormality. The laboratory results, imaging results and other diagnostic exam results were reviewed in the EMR. EKG Interpretation Critical Care Time None ? Medical Decision Making Medications lidocaine 4 % patch 1 patch (1 patch Topical Patch Applied 06/14/24337) Clinical Impressions as of 06/14/24525 Chest wall contusion, right, initial encounter 38-year-old male, no significant past medical history, presents with pain to his right lower rib cage. Pain potential etiology include but not limited to rib fracture, contusion, musculoskeletal pain. Chest x-ray was completed prior to my assessment, I see no obvious rib fractures. Patient was treated for a chest wall contusion/musculoskeletal pain with Lidoderm patches and discharged home. Patien t understands and agrees with plan. Procedures Procedures Diagnosis 1. Chest wall contusion, right, initial encounter Disposition Discharge ED Prescriptions Medication Sig Dispense Start Date End Date Auth. Provider lidocaine (LIDODERM) 5 % patch Apply 1 patch topically 1 (one) time each day for 30 doses. Remove & discard patch within 12 hours or as directed by . 30 each 06/14/2024 07/14/2024 Omid Michel MD Physician Attestation Omid Michel MD 06/14/24308 Omid Michel MD 06/14/24525 documented in this encounter Plan of Treatment Not on file documented as of this encounter Procedures Procedure Name Priority Date/Time Associated Diagnosis Comments XR RIBS W CHEST 3+ VIEWS RIGHT STAT 06/14/2024 2:12 AM EST documented in this encounter Results * XR Ribs w Chest 3+ Views Right (06/14/2024 2:12 AM EST) Anatomical Region Laterality Modality Body Right Radiographic Mary ging 06/14/2024 9:02 AM EST Impressions 06/14/2024 9:03 AM EST Impression: 1. No right rib fracture identified. 2. No active pulmonary process. Telejocelyn PEGUERO ([id number]) -------- FINAL REPORT -------- Dictated By: Tamanna Roque Dictated Date: 06/14/2024 09:02 ET Assigned Physician: Tamanna Roque Reviewed and Electronically Signed By: Tamanna Roque Signed Date: 06/14/2024 09:03 ET Workstation ID: [id number] Transcribed By: Self Edit Transcribed Date: 06/14/2024 [...] 2. No active pulmonary process. Telerad PA ([id number]) -------- FINAL REPORT -------- Dictated By: Tamanna Roque Dictated Date: 06/14/2024 09:02 ET Assigned Physician: Tamanna Roque Reviewed and Electronically Signed By: Tamanna Roque Signed Date: 06/14/2024 09:03 ET Workstation ID: [id number] Transcribed By: Self Edit Transcribed Date: 06/14/2024 09:02 ET us Omid Michel MD IMG XR PROCEDURES Final Result documented in this encounter Visit Diagnoses Diagnosis Chest wall contusion, right, initial encounter- Primary documented in this encounter Administered Medications Inactive Administered Medications - up to 3 most recent administrations Medication Order MAR Action Action Date Dose Rate Site lidocaine 4 % patch 1 patch 1 patch, Topical, Administer over 12 Hours, Once, On Wed06/14/24 at 0329, For 1 dose, Apply to chest wall. Patch Applied 06/14/2024 3:38 AM EST 1 patch Chest documented in this encounter Active and Recently Administered Medications Times are shown in EST. Scheduled Medication Order 06/12/2024 06/13/2024 06/14/2024 lidocaine 4 % patch 1 patch 1 patch, Topical, Administer over 12 Hours, Once, On Wed06/14/24 at 0329, For 1 dose, Apply to chest wall. 033 (Patch Applied - Provider: Kayla Clifford RN)338 (Due: Patch Removed - Provider: Automatic Discharge Provider - Comment: Time automatically adjusted from order being discontinued) documented in this encounter Orders Medications Ordered That Jose R ht Not Have Been Administered Count Last Ordered Date First Ordered Date lidocaine 4 % patch 1 patch 2 06/14/2024 documented in this encounter Care Teams Seismic Prospecting Observer Relationship Specialty Start Date End Date Gio Alvarenga PA [address] [place] [id number] PCP - General Physician Sales Teacher 06/14/24 documented as of this encounter
--- OUTSIDE RECORDS SUMMARY | 2024-06-26 12:00 | XMS_ITS | Encounter Summary ---
Author Organization [employer] Address [address] [place] [address] Care Team Providers Care Teachers' Assistant Name Role Phone Ravi Carlos MD Primary Care Provider [phone] Encounter Details Date Type Department Care Team (Latest Contact Info) Description 06/26/2024 Travel Social History Tobacco Use Types Packs/Day Years [...] AM EDT documented as of this encounter Plan of Treatment Upcoming Encounters Date Type Department Care Team ([facility] st Contact Info) Description 08/22/2024 10:45 AM EDT Office Visit [facility] [address] [place] [address] Ravi Carlos MD [address] [place] [address] documented as of this encounter Visit Diagnoses Not on filedocumented in this encounter Additional Health Concerns Assessment Noted Time PHQ-9 Depression Total Score: 3 06/27/19 25 9:57 AM EDT documented as of this encounter Care Teams Teachers' Assistant Relationship Specialty Start Date End Date Ravi Carlos MD [address] [place] [address] PCP - General Internal Medicine 12/01/23 documented as of this encounter
[2024-06-26 14:24] LABS: MANUAL DIFF FLAG NO
[2024-06-26 14:36] LABS: Basophils Percent Auto 0.8 % (0-2); Eosinophils Absolute Auto 0.3 X10*3/uL (0.0-0.4); Eosinophils Percent Auto 5.7 % (0-4); Hematocrit 40.2 % (42.0-52.0); Hemoglobin 13.4 g/dl (14.0-18.0); Imm Gran Abs Auto 0.02 X10*3/uL (0.00-0.03); Imm Gran Pct Auto 0.4 % (0.0-0.4); Lymphocytes Absolute Auto 1.4 X10*3/uL (1.2-4.9); Lymphocytes Percent Auto 28.7 % (20-40); Mean Corpuscular HGB Conc 33.3 g/dl (31.0-36.0); Mean Corpuscular Hemoglobin 28.8 pg (27.0-33.0); Mean Corpuscular Volume 86.5 fL (80.0-98.0); Mean Platelet Volume 9.6 fL (9.4-12.4); Monocytes Absolute Auto 0.4 X10*3/uL (0.1-1.2); Monocytes Percent Auto 8.5 % (2-11); Neutrophils Absolute Auto 2.8 x10*3/uL (2.0-8.3); Neutrophils Percent Auto 55.9 % (45-73); Platelet Count 355 X10*3/uL (160-400); Red Blood Count 4.65 X10*6/uL (4.60-5.80); Red Cell Distribution Width 12.4 % (11.0-16.0)
[2024-06-26 16:31] LABS: CT PCR NOT DETECTED (Not Detect.); NG PCR NOT DETECTED (Not Detect.)
== END 2024-06-26 10:38 | disposition home or self-care (01) ==
LOC: HO.CHCLDS 10:37
PROVIDERS: Visit Provider Internal Medicine
DX: Z00.00 Encounter for general adult medical examination without abnormal findings (principal); Z11.3 Encounter for screening for infections with a predominantly sexual mode of transmission
CPT/HCPCS: 36415; 85025; 87491; 87591